=== PATIENT | female | born 1980 | race Two or more races ===

== ENCOUNTER 2024-09-12 17:28 | Inpatient (IN) | payer BC, MEDICAID ==
[~2024-09-12] VITALS: Ht 154.9 cm; Wt 85.4 kg
--- NOTE | 2024-09-12 18:29 | ED.PDOC ---
GI ASSESSMENT HPI Comments 44 y/o F, with PMHx of hypothyroidism SHx of myomectomy and gastric bypass, presents to the ED for CC of abdominal pain. Patient states, she has been experiencing epigastric abdominal pain x3days. Patient relays, associated symptoms of vomiting and back pain which have since, resolved. Patient complains of current 10/10 pain. Patient denies nausea, diarrhea, fever, chills, or sweats. No other symptoms or modifying factors present at this time. Chief Complaint: Abdominal Pain Time Seen by MD: 18:23 Primary Care Provider: none Reviewed Notes: Nurses Notes, Medications, Allergies Allergies: Coded Allergies: NO KNOWN ALLERGIES (Unverified , 04/08/23) Home Meds Active Scripts Sumatriptan Succinate (Imitrex) 50 Mg Tab, 1 TAB PO BID, #20 TAB Prov:KHAI SY 04/08/23 Information Source: Patient Mode of Arrival: Ambulatory Timing: Days Duration: Since onset Prehospital treatment: None Quality: None Vomitus: Watery Stool: Normal Severity: Moderate Recent: None Recent Hx of: Abdominal Operations, Abdominal Surgery Pain Location: Epigastric Modifying Factors: Nothing Associated sign and symptoms: Vomiting, Abdominal Pain Past Medical History PAST MEDICAL HISTORY: Thyroid Surgical History (Other): myomectomy, gastric bypass SENIOR HUMAN RESOURCES REPRESENTATIVE History: No Pertinent SENIOR HUMAN RESOURCES REPRESENTATIVE History Family History Family History: Reviewed,noncontributory to illness Social History Smoker: Non-Smoker Alcohol: Denies ETOH Use Drugs: Denies Drug Use Lives In: Home Constitutional: denies: chills, diaphoresis, fatigue, fever, malaise, sweats, weakness, others EENTM: denies: blurred vision, double vision, ear bleeding, ear discharge, ear drainage, ear pain, ear ringing, eye pain, eye redness, hearing loss, mouth pain, mouth swelling, nasal discharge, nose bleeding, nose congestion, nose pain, photophobia, tearing, throat pain, throat swelling, voice changes, others Respiratory: denies: cough, hemoptysis, orthopnea, SOB at rest, shortness of breath, SOB with excertion, stridor, wheezing, others Cardiovascular: denies: chest pain, dizzy spells, diaphoresis, Dyspnea on exertion, edema, irregular heart beat, left arm pain, lightheadedness, palpitations, PND, syncope, others Gastrointestinal: reports: abdominal pain, vomiting; denies: abdomen distended, blood streaked bowels, constipated, diarrhea, dysphagia, difficulty swallowing, hematemesis, melena, nausea, poor appetite, poor fluid intake, rectal bleeding, rectal pain, others Genitourinary: denies: abnormal vagina bleeding, burning, dyspareunia, dysuria, flank pain, frequency, hematuria, incontinence, pain, , vagina discharge, urgency, others Neurological: denies: dizziness, fainting, headache, left sided numbness, left sided weakness, numbness, paresthesia, pre-existing deficit, right sided numbness, right sided weakness, seizure, speech problems, tingling, tremors, weakness, others Musculoskeletal: reports: back pain; denies: gout, joint pain, joint swelling, muscle pain, muscle stiffness, neck pain, others Integumetry: denies: bruises, change in color, change in hair/nails, dryness, laceration, lesions, lumps, rash, wounds, others Allergic/Immunocompromised: denies: Difficulty Healing, Frequent Infections, Hives, Itching, others Hematologic/Lymphatic: denies: anemia, blood clots, easy bleeding, easy bruising, swollen glands, others Endocrine: denies: excessive hunger, excessive sweating, excessive thirst, excessive urination, flushing, intolerance to cold, intolerance to heat, unex plained weight gain, unexplained weight loss, others Psychiatric: denies: anxiety, bipolar disorder, depression, hopeless, panic disorder, schizophrenia, sleepless, suicidal, others All Other Systems: Reviewed and Negative Physical Exam General Appearance: Moderate Distress HEENT: Normal ENT Inspection, Pharynx Normal, TMs Normal Neck: Full Range of Motion, Non-Tender, Normal, Normal Inspection Respiratory: Chest Non-Tender, Lungs Clear, No Accessory Muscle Use, No Respiratory Distress, Normal Breath Sounds Cardiovascular: No Edema, No JVD, No Murmur, No Gallop, Normal Peripheral Pulses, Regular Rate/Rhythm Breast Exam: Deferred Gastrointestinal: Epigastric, No Organomegaly, No Pulsatile Mass, Normal Bowel Sounds, Soft, Tenderness Genitalia: Deferred Pelvic: Deferred Rectal: Deferred Extremities: No calf tenderness, Normal capillary refill, Normal inspection, Normal range of motion, Non-tender, No pedal edema Musculoskeletal : Apperance: Normal Neurologic: Alert, sugar drier II-XII nml as Tested, No Motor Deficits, Normal Affect, Normal Mood, No Sensory Deficits Cerebellar Function: Normal Reflexes: Normal Skin: Dry, Normal Color, Warm Lymphatic: No Adenopathy Was a procedure done? Was a procedure done?: No GI differential Dx Differential Diagnosis: Cholangitis, Cholecystitis X-Ray, Labs, Meds, VS Vital Signs Date Time Temp Pulse Resp B/P (MAP) Pulse Ox O2 Delivery O2 Flow Rate FiO2 09/12/24 17:52 98.7 90 17 135/86 (102) 100 98.7 Lab Test 09/12/24 19:31 09/12/24 18:35 Range/Units Urine Color Pending Urine Clarity Pending Urine pH Pending Urine Specific [place] Pending Urine Protein Pending Urine Ketones Pending Urine Blood Pending Urine Nitrite Pending Urine Bilirubin Pending Urine Urobilinogen Pending Urine Leukocyte Esterase Pending Urine RBC Pending Urine Microscopic WBC Pending Urine Squamous Epithelial Cells Pending Urine Bacteria Pending Urine Glucose Pending White Blood Count 8.8 4.4-10.8 10^3/uL Red Blood Count 4.33 4.0-5.20 10^6/uL Hemoglobin 10.7 L 12.2-16.2 g/dL Hematocrit 32.4 L 36.0-46.0 % Mean Corpuscular Volume 74.7 L 80.0-100.0 fL Mean Corpuscular Hemoglobin 24.8 L 28.0-32.0 pg Mean Corpuscular Hemoglobin Concent 33.2 32.0-36.0 g/dL Red Cell Distribution Width 16.3 H 11.8-14.3 % Platelet Count 343 140-450 10^3/uL Mean Platelet Volume 7.9 6.9-10.8 fL Neutrophils (%) (Auto) 75.7 37.0-80.0 % Lymphocytes (%) (Auto) 15.8 10.0-50.0 % Monocytes (%) (Auto) 6.1 0.0-12.0 % Eosinophils (%) (Auto) 1.1 0.0-7.0 % Basophils (%) (Auto) 1.3 0.0-2.0 % Neutrophils # (Auto) 6.7 1.6-8.6 10 ^3/uL Lymphocytes # (Auto) 1.4 0.4-5.4 10 ^3/uL Monocytes # (Auto) 0.5 0-1.3 10 ^3/uL Eosinophils # (Auto) 0.1 0-0.8 10 ^3/uL Basophils # (Auto) 0.1 0-0.2 10 ^3/uL Nucleated Red Blood Cells 0.0 % Sodium Level 140 136-145 mmol/L Potassium Level 3.7 3.5-5.1 mmol/L Chloride Level 105 98-107 mmol/L Carbon Dioxide Level 27 20-31 mmol/L Anion Gap 8 5-15 Blood Urea Nitrogen 9 9-23 mg/dL Creatinine 0.58 0.550-1.02 mg/dL Glomerular Filtration Rate Calc 114 >90 mL/min BUN/Creatinine Ratio 15.5 10.0-20.0 Serum Glucose 106 74-106 mg/dL Calcium Level 9.1 8.7-10.4 mg/dL Total Bilirubin 0.9 0.2-1.0 mg/dL Aspartate Amino Transferase (AST) 381 H 13-40 U/L Alanine Aminotransferase (ALT) 432 H 7-40 U/L Alkaline Phosphatase 434 H 46-116 U/L Total Protein 7.5 5.7-8.2 g/dL Albumin 4.5 3.2-4.8 g/dL Lipase 36 12-53 U/L Ultrasound of the gallbladder shows: IMPRESSION: 1. Cholelithiasis and sludge in the gallbladder. There is no thickened gallbladder wall. Negative sonographic Andrade's sign. 2. Right kidney measures 9 cm. There is no hydronephrosis. The CBC shows anemia with a hemoglobin of 10.7 and hematocrit is 32.4 The chemistry panel is within normal limits and the liver enzymes are elevated The patient is being admitted at this time We discussed the findings with the patient and they are in agreement with the management. Images Reviewed?: Images reviewed and evaluated by me Time of 1ST Reevaluation: 18:53 Reevaluation 1ST: Unchanged Patient Education/Counseling: Diagnosis, Treatment Family Education/Counseling: No Family Present Departure 1 Departure Time of Disposition: 19:50 Impression: Primary Impression: Intractable abdominal pain Additional Impression: Cholelithiasis Qualified Codes: K80.20 - Calculus of gallbladder without cholecystitis without obstruction Disposition: ADMITTED INPATIENT Admit to: Med Surg Condition: Fair Critical Care Note Critical Care Time?: No Stability Stability form required: Yes Unstable for transfer: ED Physician Assesment (Clinical assesment) Heart Score Heart Score: Heart Score Response (Comments) Value History N/A 0 EKG N/A 0 Age N/A 0 Risk Factors N/A 0 Troponin N/A 0 Total 0 I personally scribed for BIANCA ESPITIA MD ([email or web address]) on 09/12/24 at 18:28. Electronically submitted by Nancy Dubois ([email or web address]). BIANCA ESPITIA MD September 12, 2024 18:28
[2024-09-12] MEDS: MORPHINE SULFATE 4 MG/ML SYR/VIAL IV ONE (18:30)
[2024-09-12 18:46] LABS: Basophils # (auto) 0.1 10 ^3/uL (0-0.2); Basophils % (auto) 1.3 % (0.0-2.0); Eosinophils # (auto) 0.1 10 ^3/uL (0-0.8); Eosinophils % (auto) 1.1 % (0.0-7.0); Hematocrit 32.4 % (36.0-46.0); Hemoglobin 10.7 g/dL (12.2-16.2); Lymphocytes # (auto) 1.4 10 ^3/uL (0.4-5.4); Lymphocytes % (auto) 15.8 % (10.0-50.0); Mean Corpuscular Hemoglobin 24.8 pg (28.0-32.0); Mean Corpuscular Hgb Conc. 33.2 g/dL (32.0-36.0); Mean Corpuscular Volume 74.7 fL (80.0-100.0); Monocytes # (auto) 0.5 10 ^3/uL (0-1.3); Monocytes % (auto) 6.1 % (0.0-12.0); Neutrophils # (auto) 6.7 10 ^3/uL (1.6-8.6); Neutrophils % (auto) 75.7 % (37.0-80.0); Platelet Count (auto) 343 10^3/uL (140-450); Red Blood Cells 4.33 10^6/uL (4.0-5.20); Red Cell Distribution Width 16.3 % (11.8-14.3); White Blood Cell 8.8 10^3/uL (4.4-10.8)
[2024-09-12 19:05] LABS: Anion Gap 8 (5-15); BUN/Creatinine Ratio 15.5 (10.0-20.0); Blood Urea Nitrogen 9 mg/dL (9-23); Calcium 9.1 mg/dL (8.7-10.4); Carbon Dioxide 27 mmol/L (20-31); Chloride 105 mmol/L (98-107); Glucose 106 mg/dL (74-106); Lipase 36 U/L (12-53); Potassium 3.7 mmol/L (3.5-5.1); Sodium 140 mmol/L (136-145); Total Protein 7.5 g/dL (5.7-8.2)
[2024-09-12 19:06] LABS: Albumin 4.5 g/dL (3.2-4.8); Bilirubin, Total 0.9 mg/dL (0.2-1.0)
[2024-09-12 19:07] LABS: Alanine Aminotransferase 432 U/L (7-40); Alkaline Phosphatase 434 U/L (46-116); Aspartate Aminotransferase 381 U/L (13-40)
[2024-09-12 19:33] LABS: Urine Bacteria None Seen /hpf (None Seen)
--- NOTE | 2024-09-12 19:36 | DVH ---
INDICATION: pain TECHNIQUE: Ultrasound of the gallbladder. Multiple real-time sonographic images of the abdomen were obtained. COMPARISON: None FINDINGS: The liver is homogenous in echogenicity. The liver measures 15.2 cm. No intrahepatic bilia ry ductal dilatation is noted. The gallbladder wall measures 0.13 cm and is unremarkable. Cholelithiasis which appear mobile. Ther e is also sludge in the gallbladder. The common duct measures 0.43 cm and is unremarkable. No peric holecystic fluid is noted. Negative sonographic andrade's sign. The right kidney measures 9 cm. No hydronephrosis. The pancreas is not well visualized due to obscuration from bowel gas. The visualized portions of the IVC and aorta are grossly unremarkable. IMPRESSION: 1. Cholelithiasis and sludge in the gallbladder. There is no thickened gallbladder wall. Negative son ographic Andrade's sign. 2. Right kidney measures 9 cm. There is no hydronephrosis.
[2024-09-12 20:01] LABS: Urine Blood 3+ /uL (Negative); Urine Clarity Turbid (Clear); Urine Color Light-Orange (Yellow); Urine Mucus FEW (None Seen); Urine Protein, UAD TRACE (Negative); Urine Specific Gravity 1.024 (1.001-1.035); Urine Squamous Epithelial Cell FEW /hpf (<5); Urine Urobilinogen 4 mg/dL (Negative); Urine WBC 25 /HPF (0-5); Urine pH 6.5 (5.0-9.0)
[2024-09-12] MEDS ORDERED: ACETAMINOPHEN 325 MG TAB PO PRN (21:15)
[2024-09-12] MEDS ORDERED: IBUPROFEN 400 MG TAB PO PRN (21:15)
[2024-09-13] VITALS (9 sets, daily range): BP systolic 97–123; BP diastolic 58–87; PULSE 55–90; RESP 14–20; TEMP 97.6–98.3; O2SAT 97–100
[2024-09-13] MEDS: SODIUM CHLORIDE 0.9% 1,000 ML IVB ONE (00:11)
[2024-09-13] MEDS: PANTOPRAZOLE 40 MG/10 ML VIAL INJ IV ONE (00:22)
[2024-09-13] MEDS: ONDANSETRON HCL 4 MG/2 ML VIAL IV ONE (00:22)
[2024-09-13] MEDS: metroNIDAZOLE 500MG/100ML 100 ML IV SCH (00:22)
--- NOTE | 2024-09-13 00:41 | DVH ---
Exam: CT CT AB PEL WITH IV CON ONLY History: acute intractable abdominal pain Comparison Study: None Technique: Multidetector spiral CT of the abdomen was performed from lung bases to pubic symphysis. I maging was performed without IV contrast. Axial, coronal and sagittal multiplanar reformats were obta ined from the axial data set by the technologist. Radiation Dose : 1. Abdomen/Pelvis: CTDIvol 16.22 mGy, DLP 887.09 mGy*cm. Findings: Evaluation of solid organs is limited due to lack of intravenous contrast use. Lung Bases: No acute or significant lung base finding. Normal heart size. No pleural or pericardial effusion. Liver: The liver is normal in size. No focal lesions. Gallbladder and Biliary Tree: Unremarkable Spleen: Unremarkable Pancreas: The pancreas is grossly normal in appearance. Adrenal Glands: Unremarkable Kidneys: Kidneys are grossly normal without calculi or hydronephrosis. Bladder: Grossly unremarkable for degree of distention. Bowel: Postsurgical changes noted within the stomach. The stomach is otherwise grossly normal in appe arance. Small bowel and colon are normal in caliber and distribution. The appendix is normal. Ascites: Absent Lymphadenopathy: No mesenteric, retroperitoneal or periportal lymphadenopathy. Abdominal Wall and Mesentery: Unremarkable. Vasculature: The visualized abdominal aorta is normal in size and caliber. Evaluation of abdominal a nd pelvic vessels is limited due to lack of intravenous contrast. Pelvic Organs: 2.2 cm cystic near water attenuation structure within left adnexal region. The cervix is lobulated and moderately enlarged, measuring 3.5 x 3.4 cm transverse by 5.1 cm craniocaudal, with multiple lobulated near water attenuation cystic densities measuring up to 1.8 cm in diameter central ly. Musculoskeletal: No aggressive focal bony lesions, acute fractures or dislocation. IMPRESSION: 1. Enlarged lobulated multi-cystic cervix. Considerations include cervicitis, multiple nabothian cyst s or malignancy. 2. Cystic appearing left adnexal structure may represent ovarian cysts versus possible dilated fallop barbara tube. Radiation optimization: All CT scans at this facility use at least one of these dose optimization nitza hniques: automated exposure control mA and/or kV adjustment per patient size (includes targeted exam s where dose is matched to clinical indication) or iterative reconstruction.
--- NOTE | 2024-09-13 03:37 | DVHHP2 ---
History of Present Illness Reason for Visit: acute intractable abdominal pain History of Present Illness 44-year-old female with past medical history of hypothyroidism, status post myomectomy and gastric bypass, presents with 3-day history of severe epigastric abdominal pain rated 10/10. Pain is constant, without known alleviating or exacerbating factors. Associated symptoms include vomiting and back pain, which have since resolved. She denies diarrhea, nausea, chills, fever, or sweats. She is currently menstruating. Notable for recent Moy catheter placement. Denies prior similar episodes. Home Meds: Sumatriptan (Imitrex) 50 mg PO BID Protonix Synthroid Allergies: NKDA Social History: Non-smoker Denies alcohol or illicit drug use Lives independently Review of Systems Review of Systems ROS: Negative except as noted in HPI. Allergies: Coded Allergies: NO KNOWN ALLERGIES (Unverified , 04/08/23) Medications Current Medications Medications Dose Ordered Sig/Pennie Route Start Time Stop Time Status Last Admin Dose Admin Ceftriaxone Sodium 50 ml @ 100 mls/hr DAILY@09 IV 09/13/24 09:00 Metronidazole 100 ml @ 100 mls/hr Q8HR IV 09/12/24 22:00 09/13/24 00:22 100 MLS/HR Ibuprofen 400 mg Q6HP PRN PO 09/12/24 21:15 Ketorolac Tromethamine 15 mg Q6HPRN PRN IV 09/12/24 21:15 09/17/24 21:14 Sodium Chloride 1,000 ml @ 100 mls/hr Q10H IV 09/12/24 21:15 Pantoprazole Sodium 40 mg DAILY IV 09/13/24 10:00 Acetaminophen 325 mg Q6HP PO 09/13/24 06:00 UNV Exam Vital Signs Vital Signs Date Time Temp Pulse Resp B/P (MAP) Pulse Ox O2 Delivery O2 Flow Rate FiO2 09/13/24 00:35 98.3 86 20 117/64 (81) 100 98.3 Exam General: Alert, oriented, uncomfortable due to pain HEENT: Normocephalic, atraumatic CV: RRR, no murmurs Resp: Clear to auscultation bilaterally GI: Epigastric tenderness to palpation, no guarding or rebound Back: Left CVA tenderness Ext: No edema Neuro: Grossly intact Skin: No rash Labs/Xrays Labs Test 09/12/24 19:31 09/12/24 18:35 Range/Units Urine Color Light-orange Yellow Urine Clarity Turbid H Clear Urine pH 6.5 5.0-9.0 Urine Specific [place] 1.024 1.001-1.035 Urine Protein Trace H Negative Urine Ketones Trace Negative Urine Blood 3+ H Negative /uL Urine Nitrite Negative Negative Urine Bilirubin Negative Negative Urine Urobilinogen 4 H Negative mg/dL Urine Leukocyte Esterase 1+ Negative /uL Urine RBC 3594 0 - 4 /hpf Urine Microscopic WBC 25 H 0-5 /HPF Urine Squamous Epithelial Cells Few <5 /hpf Urine Bacteria None seen None Seen /hpf Urine Mucus Few None Seen Urine Glucose Normal Normal mg/dL White Blood Count 8.8 4.4-10.8 10^3/uL Red Blood Count 4.33 4.0-5.20 10^6/uL Hemoglobin 10.7 L 12.2-16.2 g/dL Hematocrit 32.4 L 36.0-46.0 % Mean Corpuscular Volume 74.7 L 80.0-100.0 fL Mean Corpuscular Hemoglobin 24.8 L 28.0-32.0 pg Mean Corpuscular Hemoglobin Concent 33.2 32.0-36.0 g/dL Red Cell Distribution Width 16.3 H 11.8-14.3 % Platelet Count 343 140-450 10^3/uL Mean Platelet Volume 7.9 6.9-10.8 fL Neutrophils (%) (Auto) 75.7 37.0-80.0 % Lymphocytes (%) (Auto) 15.8 10.0-50.0 % Monocytes (%) (Auto) 6.1 0.0-12.0 % Eosinophils (%) (Auto) 1.1 0.0-7.0 % Basophils (%) (Auto) 1.3 0.0-2.0 % Neutrophils # (Auto) 6.7 1.6-8.6 10 ^3/uL Lymphocytes # (Auto) 1.4 0.4-5.4 10 ^3/uL Monocytes # (Auto) 0.5 0-1.3 10 ^3/uL Eosinophils # (Auto) 0.1 0-0.8 10 ^3/uL Basophils # (Auto) 0.1 0-0.2 10 ^3/uL Nucleated Red Blood Cells 0.0 % Sodium Level 140 136-145 mmol/L Potassium Level 3.7 3.5-5.1 mmol/L Chloride Level 105 98-107 mmol/L Carbon Dioxide Level 27 20-31 mmol/L Anion Gap 8 5-15 Blood Urea Nitrogen 9 9-23 mg/dL Creatinine 0.58 0.550-1.02 mg/dL Glomerular Filtration Rate Calc 114 >90 mL/min BUN/Creatinine Ratio 15.5 10.0-20.0 Serum Glucose 106 74-106 mg/dL Calcium Level 9.1 8.7-10.4 mg/dL Total Bilirubin 0.9 0.2-1.0 mg/dL Aspartate Amino Transferase (AST) 381 H 13-40 U/L Alanine Aminotransferase (ALT) 432 H 7-40 U/L Alkaline Phosphatase 434 H 46-116 U/L Total Protein 7.5 5.7-8.2 g/dL Albumin 4.5 3.2-4.8 g/dL Lipase 36 12-53 U/L Assessment/Plan Assessment/Plan #Acute intractable abdominal pain #Symptomatic Cholelithiasis #Transaminitis #Possible PID #UTI? #Hypothyroidism #GERD? Current in her period Admit NPO Med surg Surgery consult due to very symptomatic cholelithiasis IB AB: ceftriaxone + metronidazole Doxycycline and ceftriaxone due to possible PID Pain management Protonix IV NS 100 CC/H Case discussed with Dr Short Full code Plan discussed with: Patient, Other (rn) My Orders Orders - JOLENE CHANG Procedure Category Date Status Time Admit ADMIT 09/12/24 Transmitted 21:01 Code Status CODE 09/12/24 Transmitted 21:01 Vital Signs INDY 09/12/24 In Process 21:01 Review Orders With INDY 09/12/24 In Process Adm. 21:01 Notify Of Changes INDY 09/12/24 In Process From Base 21:01 Advance Directive INDY 09/12/24 In Process 21:01 Patient Condition ORDERS 09/12/24 Transmitted 21:01 Allergies INDY 09/12/24 In Process 21:01 Npo (Nothing By DIET 09/13/24 Transmitted Mouth) Diet Breakfast Urine ED NURSING 09/12/24 Transmitted Urine Bacterial JENNI 09/12/24 In Process Culture 21:01 Acute Hepatitis Panel LAB 09/12/24 In Process 21:01 Ceftriaxone 1gm/50ml PHA 09/13/24 In Process D5w (Rocephin) 09:00 Metronidazole PHA 09/12/24 In Process 500mg/100ml (Flagyl 22:00 Ibuprofen Tablet PHA 09/12/24 In Process (Motrin Tablet) 21:15 Ketorolac Injection PHA 09/12/24 In Process (Toradol Injection) 21:15 Sodium Chloride 0.9% PHA 09/12/24 In Process 21:15 Pantoprazole PHA 09/13/24 In Process (Protonix) 10:00 Ct Ab Pel With Iv Con CT 09/12/24 Resulted Only 21:01 Acetaminophen Tablet PHA 09/13/24 Pending (Tylenol Tablet) 06:00 * Surgical Consult CONS 09/13/24 Transmitted Complete Blood Count LAB 09/13/24 Transmitted 03:32 Comprehensive LAB 09/13/24 Transmitted Metabolic Panel 03:32 Doxycycline Tablet PHA 09/13/24 Transmitted (Vibramycin Tablet) 10:00 Chlamydia/Gc LAB 09/13/24 Transmitted Amplification 03:32 Date of Service: September 12, 2024 Billing Provider: TONAJ SHORT MD Common Visit Codes: 06290-VYSIXOM INP/OBS CARE (HIGH) Secondary Visit Codes: 37259-CSPQQRMY CARE PLAN 30 MINUTES JOLENE CHANG RESIDENT September 13, 2024 03:37
[2024-09-13] MEDS: SODIUM CHLORIDE 0.9% 1,000 ML IV SCH (05:13)
[2024-09-13] MEDS: LEVOTHYROXINE SODIUM 50 MCG TAB PO SCH (05:22)
[2024-09-13 06:33] LABS: Basophils # (auto) 0.1 10 ^3/uL (0-0.2); Eosinophils # (auto) 0.2 10 ^3/uL (0-0.8)
[2024-09-13 06:38] LABS: Basophils % (auto) 1.4 % (0.0-2.0); Eosinophils % (auto) 2.4 % (0.0-7.0); Hematocrit 30.3 % (36.0-46.0); Hemoglobin 9.7 g/dL (12.2-16.2); Mean Corpuscular Hgb Conc. 32.1 g/dL (32.0-36.0); Mean Corpuscular Volume 74.8 fL (80.0-100.0); Monocytes # (auto) 0.6 10 ^3/uL (0-1.3); Monocytes % (auto) 7.5 % (0.0-12.0); Neutrophils # (auto) 5.6 10 ^3/uL (1.6-8.6); Neutrophils % (auto) 65.7 % (37.0-80.0); Platelet Count (auto) 309 10^3/uL (140-450); Red Blood Cells 4.06 10^6/uL (4.0-5.20); Red Cell Distribution Width 16.7 % (11.8-14.3); White Blood Cell 8.6 10^3/uL (4.4-10.8)
[2024-09-13 06:53] LABS: Albumin 3.8 g/dL (3.2-4.8); Anion Gap 7 (5-15); BUN/Creatinine Ratio 12.5 (10.0-20.0); Bilirubin, Total 0.4 mg/dL (0.2-1.0); Carbon Dioxide 27 mmol/L (20-31); Chloride 107 mmol/L (98-107); Glucose 77 mg/dL (74-106); Potassium 3.6 mmol/L (3.5-5.1); Sodium 141 mmol/L (136-145); Total Protein 6.3 g/dL (5.7-8.2)
[2024-09-13 06:54] LABS: Alanine Aminotransferase 338 U/L (7-40); Alkaline Phosphatase 369 U/L (46-116); Aspartate Aminotransferase 168 U/L (13-40); Blood Urea Nitrogen 6 mg/dL (9-23); Calcium 8.6 mg/dL (8.7-10.4)
[2024-09-13] MEDS: DOXYCYCLINE 100 MG TAB/CAP PO SCH (09:09)
[2024-09-13] MEDS: cefTRIAXone 1GM/50ML D5W 50 ML IV SCH (09:09)
[2024-09-13] MEDS: PANTOPRAZOLE 40 MG/10 ML VIAL INJ IV SCH (09:11)
[2024-09-13 10:09] LABS: Hepatitis B Surface Antigen Negative (Negative)
[2024-09-13 10:20] LABS: Hepatitis A Ab IgM Negative; Hepatitis B Core IgM Negative (Negative); Hepatitis C Antibody Negative (Negative)
--- NOTE | 2024-09-13 10:49 | DVHINCON2 ---
Date of service: September 13, 2024 Referring Physician hospitalist Reason for Consultation pelvic cyst History of Present Illness pt is admitted for epigastric pain,had recent myomectomy by dr vega .per dr vega pt is suffering from gall bladder problems and he has cleared her gynecologically. pt has an ultrasound which reveals multiple nabolthin cysts of cervix and left hydrosalpinx.her lmp was 09/11/24 ,she denies any pelvic pain or aub.last pap was recent Past Medical History hypothyroid and anemia Past Surgical History myomectomy,gastric sleeve Family History na Social History 2 Patient Family History: Diabetes mellitus G8 SISTER Hypertension G8 MOTHER Allergies: Coded Allergies: NO KNOWN ALLERGIES (Unverified , 04/08/23) Home Meds Active Scripts Sumatriptan Succinate (Imitrex) 50 Mg Tab, 1 TAB PO BID, #20 TAB Prov:KHAI SY 04/08/23 Reported Medications Levothyroxine Sodium (Synthroid) 125 Mcg Tab, 1 TAB PO DAILY, #30 TAB 5 Refills 09/13/24 Current Medications Current Medications Medications (Trade) Dose Ordered Sig/Pennie Route PRN Reason Start Time Stop Time Status Last Admin Ceftriaxone Sodium 50 ml @ 100 mls/hr DAILY@09 IV 09/13/24 09:00 09/13/24 09:09 Metronidazole 100 ml @ 100 mls/hr Q8HR IV 09/12/24 22:00 09/13/24 05:17 Acetaminophen (Tylenol Tablet) 325 mg Q6HP PRN PO MILD PAIN (1-3 PAIN SCALE) 09/12/24 21:15 09/13/24 00:41 DC Ibuprofen (Motrin Tablet) 400 mg Q6HP PRN PO MODERATE PAIN (4-6 PAIN SCALE) 09/12/24 21:15 Ketorolac Tromethamine (Toradol Injection) 15 mg Q6HPRN PRN IV SEVERE PAIN (7-10 PAIN SCALE) 09/12/24 21:15 09/17/24 21:14 Sodium Chloride 1,000 ml @ 100 mls/hr Q10H IV 09/12/24 21:15 09/13/24 05:13 Pantoprazole Sodium (Protonix) 40 mg DAILY IV 09/13/24 10:00 09/13/24 09:11 Acetaminophen (Tylenol Tablet) 325 mg Q6HP PO 09/13/24 06:00 Doxycycline Monohydrate (Vibramycin Tablet) 100 mg Q12HR PO 09/13/24 10:00 09/13/24 09:09 Levothyroxine Sodium (Synthroid Tablet) 125 mcg QAM@0600 PO 09/13/24 06:00 Review of Systems Constitutional: no fever, chill, weight loss HEENT: no eye pain, no hearing loss, no oral lesion, no scleral icterus Heart: no chest pain, no chest pressure Lung: no cough, no dyspnea with exertion Abdomen: see HPI : no pain with urination, normal appearing urine Musculoskeletal: no joint pain, no muscle pain Neurological: no seizure, no loss of sensation, no weakness in extremities Pysch: no depression, no anxiety Derm: no rash, no jaundice Vital Signs Vital Signs Date Time Temp Pulse Resp B/P (MAP) Pulse Ox O2 Delivery O2 Flow Rate FiO2 09/13/24 08:23 55 20 98 Room Air* 0 21 09/13/24 05:00 97.8 97/58 (71) 97.8 Physical Exam SKIN: [nl] HEENT: [nl] NECK: [nl] CARDIAC: [rrr] PULMONARY: [cta] ABDOMEN: [soft,nt] MUSCULOSKELETAL: [nl] pelvic- vag nl,cx nl cystic,uterus nl size,adenxa nt Labs/Diagnostic Data Labs Test 09/13/24 05:40 09/12/24 19:31 09/12/24 18:35 Range/Units White Blood Count 8.6 4.4-10.8 10^3/uL Red Blood Count 4.06 4.0-5.20 10^6/uL Hemoglobin 9.7 L 12.2-16.2 g/dL Hematocrit 30.3 L 36.0-46.0 % Mean Corpuscular Volume 74.8 L 80.0-100.0 fL Mean Corpuscular Hemoglobin 24.0 L 28.0-32.0 pg Mean Corpuscular Hemoglobin Concent 32.1 32.0-36.0 g/dL Red Cell Distribution Width 16.7 H 11.8-14.3 % Platelet Count 309 140-450 10^3/uL Mean Platelet Volume 8.2 6.9-10.8 fL Neutrophils (%) (Auto) 65.7 37.0-80.0 % Lymphocytes (%) (Auto) 23.0 10.0-50.0 % Monocytes (%) (Auto) 7.5 0.0-12.0 % Eosinophils (%) (Auto) 2.4 0.0-7.0 % Basophils (%) (Auto) 1.4 0.0-2.0 % Neutrophils # (Auto) 5.6 1.6-8.6 10 ^3/uL Lymphocytes # (Auto) 2.0 0.4-5.4 10 ^3/uL Monocytes # (Auto) 0.6 0-1.3 10 ^3/uL Eosinophils # (Auto) 0.2 0-0.8 10 ^3/uL Basophils # (Auto) 0.1 0-0.2 10 ^3/uL Nucleated Red Blood Cells 0.0 % Sodium Level 141 136-145 mmol/L Potassium Level 3.6 3.5-5.1 mmol/L Chloride Level 107 98-107 mmol/L Carbon Dioxide Level 27 20-31 mmol/L Anion Gap 7 5-15 Blood Urea Nitrogen 6 L 9-23 mg/dL Creatinine 0.48 L 0.550-1.02 mg/dL Glomerular Filtration Rate Calc 120 >90 mL/min BUN/Creatinine Ratio 12.5 10.0-20.0 Serum Glucose 77 74-106 mg/dL Calcium Level 8.6 L 8.7-10.4 mg/dL Total Bilirubin 0.4 0.2-1.0 mg/dL Aspartate Amino Transferase (AST) 168 H 13-40 U/L Alanine Aminotransferase (ALT) 338 H 7-40 U/L Alkaline Phosphatase 369 H 46-116 U/L Total Protein 6.3 5.7-8.2 g/dL Albumin 3.8 3.2-4.8 g/dL Urine Color Light-orange Yellow Urine Clarity Turbid H Clear Urine pH 6.5 5.0-9.0 Urine Specific [place] 1.024 1.001-1.035 Urine Protein Trace H Negative Urine Ketones Trace Negative Urine Blood 3+ H Negative /uL Urine Nitrite Negative Negative Urine Bilirubin Negative Negative Urine Urobilinogen 4 H Negative mg/dL Urine Leukocyte Esterase 1+ Negative /uL Urine RBC 3594 0 - 4 /hpf Urine Microscopic WBC 25 H 0-5 /HPF Urine Squamous Epithelial Cells Few <5 /hpf Urine Bacteria None seen None Seen /hpf Urine Mucus Few None Seen Urine Glucose Normal Normal mg/dL Lipase 36 12-53 U/L Hepatitis A IgM Antibody Negative Hepatitis B Surface Antigen Negative Negative Hepatitis B Core IgM Antibody Negative Negative Hepatitis C Antibody Negative Negative Microbiology Date/Time Source Procedure Growth Status 09/12/24 19:31 Voided Urine Urine Culture - Preliminary Resulted Primary Diagnosis abd pain suspect cholelthiasis 2' Diagnosis/Comorbidities s/p recent myomectomy appears stable multople nabolthin cyst of cervix -benign findings left hydrosalpinx Plan fu with obgyn after discharge no further intervention needed from geography department chair aspect thank you will sign off Plan discussed with: Patient Visit Coding OBGYN Date of Service: September 13, 2024 Billing Provider: VENKAT CEBALLOS DO SALES AND LEASING CONSULTANT Common Visit Codes: 59510-KNK/OBS SAME DATE (HIGH) SALES AND LEASING CONSULTANT Consultation Codes: [id number] CONSULT <55MIN VENKAT CEBALLOS DO September 13, 2024 10:49
--- NOTE | 2024-09-13 14:09 | DVH ---
MRI MRCP MRI HISTORY: RULE OUT CHOLEDOCHOLITHIASIS COMPARISON: None PROCEDURE: Multiplanar multisequence MRI images were obtained of the abdomen without intravenous cont rast Additional MIPS were obtained of the biliary system. FINDINGS: Bile ducts: -Intrahepatic ducts: Non-dilated. -Extrahepatic ducts: Non-dilated. -Common bile duct: Non-dilated. -Filling defects: No filling defects -Stricture: None. Gallbladder: Multiple gallstones. Pancreas: Pancreatic duct: No ductal dilatation. Lesions: None. Liver: Signal intensity: Homogenous. Contour: Smooth. Size: Normal. Lesions: No focal liver lesion. ADDITIONAL FINDINGS: Lung base: Normal. Pancreas: Normal. Spleen:Normal. Bowel: Normal. Normal appendix. Adrenal glands:Normal. Kidneys and ureters:Simple appearing kidney cysts. Lymph nodes:Normal. Peritoneum:Normal. Vessels: Normal. Abdominal wall: Normal. Bone: No aggressive bone lesions IMPRESSION: Cholelithiasis without evidence of choledocholithiasis.
[2024-09-13] MEDS: ACETAMINOPHEN 325 MG TAB PO SCH (16:59)
--- NOTE | 2024-09-13 19:31 | DVHPNRES ---
Progress Note Date Seen: September 13, 2024 Resident Creating Document: YUDY DE LA FUENTE RESIDENT Has the PT tested + for MRSA If YES, has PT been informed?: No Medical Necessity Reason Pt with a Central, PICC or Fol: No Medical Necessity Reason Present of Presenting illness 44-year-old female with past medical history of hypothyroidism, status post myomectomy and gastric bypass, presents with 3-day history of severe epigastric abdominal pain rated 10/10. Pain is constant, without known alleviating or exacerbating factors. Associated symptoms include vomiting and back pain, which have since resolved. She denies diarrhea, nausea, chills, fever, or sweats. She is currently menstruating. Notable for recent Moy catheter placement. Denies prior similar episodes. PMHx: hypothyroidism Pshx: myomectomy and gastric bypas Home Meds:Sumatriptan (Imitrex) 50 mg PO BID,Protonix, Synthroid Allergies: NKDA Social History: Non-smoker, Denies alcohol or illicit drug use. Lives independently PN: 09/13/2024 Patient is a 44-year-old female with a past medical history of hypothyroidism presented to the ED with epigastric pain for the past 3 days. According to the patient pain is mainly located in the epigastrium region with radiation towards the back and a little bit to the right flank. It is associated with nausea and vomiting. No diarrhea. Of note patient recently had a myomectomy which was done about 6 weeks ago no complications reported. Today she denies any fever chills sweating. In the ED her initial vitals were grossly unremarkable, lab work was also unremarkable other than elevated liver enzymes. CT abdomen revealed. Enlarged lobulated multi-cystic cervix. Considerations include cervicitis, multiple nabothian cysts or malignancy. Cystic appearing left adnexal structure may represent ovarian cysts versus possible dilated fallopian tube. Gallbladder scan revealed Cholelithiasis and sludge in the gallbladder. There is no thickened gallbladder wall. Negative sonographic Andrade's sign. Right kidney measures 9 cm. There is no hydronephrosis. Subjective Review of Systems Constitutional: Denies fever no chills no feeling of malaise HEENT: Denies headache, ear pain, ear discharges, conjunctivitis, nasal discharge throat pain Cardiovascular: Denies chest pain, palpitation, orthopnea, PND, or pedal edema Respiratory: Denies shortness of breath, cough cough, sputum production, hemoptysis, GI: Severe abdominal pain, No more nausea, vomiting, NO diarrhea, hematemesis, hematochezia, : Denies frequency, urgency, hematuria, Endocrine: Denies unintentional weight gain or weight loss, feeling of hot flashes, Wesley: Denies easy bruising, bleeding disorders, epistaxis Musculoskeletal: Denies joint pains, muscle aches Psych: No evidence of depression, henry, suicidal ideation Objective vital signs Vital Sign Date Time Temp Pulse Resp B/P (MAP) Pulse Ox O2 Delivery O2 Flow Rate FiO2 09/13/24 16:38 98.3 90 18 104/87 (93) 99 98.3 09/13/24 14:45 Room Air* 0 21 medications Current Medications Medications Dose Ordered Sig/Pennie Route Start Time Stop Time Status Last Admin Dose Admin Ceftriaxone Sodium 50 ml @ 100 mls/hr DAILY@09 IV 09/13/24 09:00 09/13/24 09:09 100 MLS/HR Metronidazole 100 ml @ 100 mls/hr Q8HR IV 09/12/24 22:00 09/13/24 14:28 100 MLS/HR Ibuprofen 400 mg Q6HP PRN PO 09/12/24 21:15 Ketorolac Tromethamine 15 mg Q6HPRN PRN IV 09/12/24 21:15 09/17/24 21:14 Sodium Chloride 1,000 ml @ 100 mls/hr Q10H IV 09/12/24 21:15 09/13/24 05:13 100 MLS/HR Pantoprazole Sodium 40 mg DAILY IV 09/13/24 10:00 09/13/24 09:11 40 MG Acetaminophen 325 mg Q6HP PO 09/13/24 06:00 09/13/24 16:59 325 MG Levothyroxine Sodium 125 mcg QAM@0600 PO 09/13/24 06:00 Examination General Appearance: Alert, Oriented X3, Cooperative, No acute distress HEENT: Atraumatic, PERRLA, EOMI, Mucous membrane moist/pink Respiratory: Clear to auscultation, Normal air movement Cardiovascular: Regular rate, Normal S1, Normal S2, No murmurs, no chest wall tenderness Abdominal: Andrade;s sign negative. tenderness, bowel sounds present, no scars noted Extremities: No clubbing, No cyanosis, No edema, Normal pulses, No tenderness/swelling Skin: No rashes, No breakdown, No significant lesion Neuro: Normal gait, Normal speech, Strength at 5/5 X4 ext, Normal tone, Sensation intact, Cranial nerves 3-12 NL, Reflexes 2+ Psych/Mental Status: Mental status NL, Mood NL laboratory and microbiology Laboratory Tests 09/13/24 05:40 Test 09/13/24 05:40 Range/Units Serum Glucose 77 74-106 mg/dL Microbiology Date/Time Source Procedure Growth Status 09/12/24 19:31 Voided Urine Urine Culture - Preliminary Resulted Problem List/Assessment/Plan Problem List/Assessment/Plan Assessment and plan Acute Epigastric pain rule out cholecystitis --> cholelithiasis noted on CT abdomen --> MRCP negative for any choledocholithiasis --> consider HIDA scan Recent history of myomectomy 6 weeks ago multople nabolthin cyst of cervix -benign findings --> obgyn Consulted Acute left hydrosalpinx --> fu with obgyn after discharge, 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 Larson Plan discussed with: Patient My Orders My Orders Orders - YUDY DE LA FUENTE Procedure Category Date Status Time Mrcp Mri MRI 09/13/24 Resulted 11:59 Date of Service: September 13, 2024 Billing Provider: YUE CONTRERAS MD Common Visit Codes: [id number] INP/OBS CARE(HIGH) YUDY DE LA FUENTE September 13, 2024 19:31 YUE CONTRERAS MD September 17, 2024 03:12
--- NOTE | 2024-09-13 22:04 | DVHINCON2 ---
Date of service: September 13, 2024 Current Medications Current Medications Medications (Trade) Dose Ordered Sig/Pennie Route PRN Reason Start Time Stop Time Status Last Admin Ceftriaxone Sodium 50 ml @ 100 mls/hr DAILY@09 IV 09/13/24 09:00 09/13/24 09:09 Pantoprazole Sodium (Protonix) 40 mg DAILY IV 09/13/24 10:00 09/13/24 09:11 Acetaminophen (Tylenol Tablet) 325 mg Q6HP PO 09/13/24 06:00 09/13/24 16:59 Doxycycline Monohydrate (Vibramycin Tablet) 100 mg Q12HR PO 09/13/24 10:00 09/13/24 12:01 DC 09/13/24 09:09 Levothyroxine Sodium (Synthroid Tablet) 125 mcg QAM@0600 PO 09/13/24 06:00 Vital Signs Vital Signs Date Time Temp Pulse Resp B/P (MAP) Pulse Ox O2 Delivery O2 Flow Rate FiO2 09/13/24 16:38 98.3 90 18 104/87 (93) 99 98.3 09/13/24 14:45 Room Air* 0 21 Labs/Diagnostic Data Labs Test 09/13/24 05:40 09/12/24 19:31 09/12/24 18:35 Range/Units White Blood Count 8.6 4.4-10.8 10^3/uL Red Blood Count 4.06 4.0-5.20 10^6/uL Hemoglobin 9.7 L 12.2-16.2 g/dL Hematocrit 30.3 L 36.0-46.0 % Mean Corpuscular Volume 74.8 L 80.0-100.0 fL Mean Corpuscular Hemoglobin 24.0 L 28.0-32.0 pg Mean Corpuscular Hemoglobin Concent 32.1 32.0-36.0 g/dL Red Cell Distribution Width 16.7 H 11.8-14.3 % Platelet Count 309 140-450 10^3/uL Mean Platelet Volume 8.2 6.9-10.8 fL Neutrophils (%) (Auto) 65.7 37.0-80.0 % Lymphocytes (%) (Auto) 23.0 10.0-50.0 % Monocytes (%) (Auto) 7.5 0.0-12.0 % Eosinophils (%) (Auto) 2.4 0.0-7.0 % Basophils (%) (Auto) 1.4 0.0-2.0 % Neutrophils # (Auto) 5.6 1.6-8.6 10 ^3/uL Lymphocytes # (Auto) 2.0 0.4-5.4 10 ^3/uL Monocytes # (Auto) 0.6 0-1.3 10 ^3/uL Eosinophils # (Auto) 0.2 0-0.8 10 ^3/uL Basophils # (Auto) 0.1 0-0.2 10 ^3/uL Nucleated Red Blood Cells 0.0 % Sodium Level 141 136-145 mmol/L Potassium Level 3.6 3.5-5.1 mmol/L Chloride Level 107 98-107 mmol/L Carbon Dioxide Level 27 20-31 mmol/L Anion Gap 7 5-15 Blood Urea Nitrogen 6 L 9-23 mg/dL Creatinine 0.48 L 0.550-1.02 mg/dL Glomerular Filtration Rate Calc 120 >90 mL/min BUN/Creatinine Ratio 12.5 10.0-20.0 Serum Glucose 77 74-106 mg/dL Calcium Level 8.6 L 8.7-10.4 mg/dL Total Bilirubin 0.4 0.2-1.0 mg/dL Aspartate Amino Transferase (AST) 168 H 13-40 U/L Alanine Aminotransferase (ALT) 338 H 7-40 U/L Alkaline Phosphatase 369 H 46-116 U/L Total Protein 6.3 5.7-8.2 g/dL Albumin 3.8 3.2-4.8 g/dL Urine Color Light-orange Yellow Urine Clarity Turbid H Clear Urine pH 6.5 5.0-9.0 Urine Specific [place] 1.024 1.001-1.035 Urine Protein Trace H Negative Urine Ketones Trace Negative Urine Blood 3+ H Negative /uL Urine Nitrite Negative Negative Urine Bilirubin Negative Negative Urine Urobilinogen 4 H Negative mg/dL Urine Leukocyte Esterase 1+ Negative /uL Urine RBC 3594 0 - 4 /hpf Urine Microscopic WBC 25 H 0-5 /HPF Urine Squamous Epithelial Cells Few <5 /hpf Urine Bacteria None seen None Seen /hpf Urine Mucus Few None Seen Urine Glucose Normal Normal mg/dL Lipase 36 12-53 U/L Hepatitis A IgM Antibody Negative Hepatitis B Surface Antigen Negative Negative Hepatitis B Core IgM Antibody Negative Negative Hepatitis C Antibody Negative Negative Microbiology Date/Time Source Procedure Growth Status 09/12/24 19:31 Voided Urine Urine Culture - Preliminary Resulted Assessment [id number] R/O AC CHOLECYSTITIS MILF LFT ELEVATION CONSIDER EMERGENT /ELECTIVE SURGERY BASED ON ONGOING EVAL REPEAT LABS AM KEEP NPO PAST MN Plan discussed with: Patient KIET DE LOS SANTOS MD September 13, 2024 22:04
[2024-09-14 01:00] VITALS: BP 95/59; PULSE 69; RESP 16; TEMP 98.1; O2SAT 97
[2024-09-14 05:00] VITALS: BP 105/61; PULSE 73; RESP 16; TEMP 98; O2SAT 96
[2024-09-14 06:36] LABS: Basophils # (auto) 0.1 10 ^3/uL (0-0.2); Hemoglobin 10.1 g/dL (12.2-16.2); Neutrophils # (auto) 5.1 10 ^3/uL (1.6-8.6); White Blood Cell 7.5 10^3/uL (4.4-10.8)
[2024-09-14 06:38] LABS: Basophils % (auto) 1.8 % (0.0-2.0); Eosinophils # (auto) 0.2 10 ^3/uL (0-0.8); Eosinophils % (auto) 2.1 % (0.0-7.0); Lymphocytes # (auto) 1.6 10 ^3/uL (0.4-5.4); Lymphocytes % (auto) 21.6 % (10.0-50.0); Mean Corpuscular Hemoglobin 23.7 pg (28.0-32.0); Mean Corpuscular Hgb Conc. 31.7 g/dL (32.0-36.0); Mean Corpuscular Volume 74.8 fL (80.0-100.0); Monocytes # (auto) 0.5 10 ^3/uL (0-1.3); Monocytes % (auto) 6.4 % (0.0-12.0); Neutrophils % (auto) 68.1 % (37.0-80.0); Nucleated Red Blood Cells % 0.1 %; Platelet Count (auto) 351 10^3/uL (140-450); Red Blood Cells 4.28 10^6/uL (4.0-5.20); Red Cell Distribution Width 16.4 % (11.8-14.3)
[2024-09-14 07:00] LABS: Anion Gap 10 (5-15); Bilirubin, Total 0.3 mg/dL (0.2-1.0); Carbon Dioxide 27 mmol/L (20-31); Chloride 104 mmol/L (98-107); Glucose 82 mg/dL (74-106); Potassium 3.6 mmol/L (3.5-5.1); Sodium 141 mmol/L (136-145); Total Protein 6.7 g/dL (5.7-8.2)
[2024-09-14 07:10] LABS: Alanine Aminotransferase 235 U/L (7-40); Alkaline Phosphatase 331 U/L (46-116); Aspartate Aminotransferase 55 U/L (13-40); BUN/Creatinine Ratio 9.8 (10.0-20.0); Blood Urea Nitrogen < 5 mg/dL (9-23)
--- NOTE | 2024-09-14 08:16 | DVHINCON2 ---
DATE OF CONSULTATION: 09/13/2024 HISTORY OF PRESENT ILLNESS: This patient is 44 years old, coming in with right upper quadrant pain with some relief, but not completely gone. Some nausea. No vomiting. No constipation or diarrhea. No hematemesis or melena. No bleeding per rectum. PAST MEDICAL HISTORY: No diabetes, hypertension. PAST SURGICAL HISTORY: Some GEAR FINISHER procedure was done 6 weeks ago. PHYSICAL EXAMINATION: VITAL SIGNS: Afebrile. Stable signs. HEENT: With no evidence of pallor, cyanosis or jaundice. NECK: Supple, nontender with no thyromegaly or lymphadenopathy. CHEST AND LUNGS: Clear. HEART: Within normal limits. ABDOMEN: Soft, tender in the right upper quadrant with minimal rebound. EXTREMITIES: Unremarkable. NEUROLOGIC: Intact. CLINICAL IMPRESSION: Rule out acute cholecystitis. Liver enzymes mildly elevated and trending down. PLAN: Would be to consider emergent or elective study based upon ongoing evaluation. Benefits, risks discussed and a consent obtained. MD THERESE Garner/ANIL/WILSON TID: [id number] RECEIPT: [id number] cc: Sheri Vigil MD
[2024-09-14 09:00] VITALS: BP 97/62; PULSE 74; RESP 18; TEMP 98.1; O2SAT 100
[2024-09-14] MEDS: LEVOTHYROXINE SODIUM 50 MCG TAB PO ONE (11:13)
[2024-09-14] MEDS: SODIUM CHLORIDE 0.9% 1,000 ML IV SCH (11:15)
[2024-09-14 13:00] VITALS: BP 100/57; PULSE 77; RESP 18; TEMP 99.1; O2SAT 100
--- NOTE | 2024-09-14 16:53 | DVHPNRES ---
Progress Note Date Seen: September 14, 2024 Resident Creating Document: YUDY DE LA FUENTE RESIDENT Has the PT tested + for MRSA If YES, has PT been informed?: No Medical Necessity Reason Pt with a Central, PICC or Fol: No Medical Necessity Reason Present of Presenting illness 44-year-old female with past medical history of hypothyroidism, status post myomectomy and gastric bypass, presents with 3-day history of severe epigastric abdominal pain rated 10/10. Pain is constant, without known alleviating or exacerbating factors. Associated symptoms include vomiting and back pain, which have since resolved. She denies diarrhea, nausea, chills, fever, or sweats. She is currently menstruating. Notable for recent Moy catheter placement. Denies prior similar episodes. PMHx: hypothyroidism Pshx: myomectomy and gastric bypas Home Meds:Sumatriptan (Imitrex) 50 mg PO BID,Protonix, Synthroid Allergies: NKDA Social History: Non-smoker, Denies alcohol or illicit drug use. Lives independently PN: 09/13/2024 Patient is a 44-year-old female with a past medical history of hypothyroidism presented to the ED with epigastric pain for the past 3 days. According to the patient pain is mainly located in the epigastrium region with radiation towards the back and a little bit to the right flank. It is associated with nausea and vomiting. No diarrhea. Of note patient recently had a myomectomy which was done about 6 weeks ago no complications reported. Today she denies any fever chills sweating. In the ED her initial vitals were grossly unremarkable, lab work was also unremarkable other than elevated liver enzymes. CT abdomen revealed. Enlarged lobulated multi-cystic cervix. Considerations include cervicitis, multiple nabothian cysts or malignancy. Cystic appearing left adnexal structure may represent ovarian cysts versus possible dilated fallopian tube. Gallbladder scan revealed Cholelithiasis and sludge in the gallbladder. There is no thickened gallbladder wall. Negative sonographic Andrade's sign. Right kidney measures 9 cm. There is no hydronephrosis. PN: 09/14/2024 Patient seen and examined today. Pain is better she said. Her MRCP was negative for choledocholithiasis. Labs today showed LFT levels are improving. it is likely that she might have passed a stone. Patient was also seen by the surgeon for possibility of emergent vs elective surgery. Patient is getting better. Will follow up with surgeon. She is currently NPO. Subjective Review of Systems Constitutional: Denies fever no chills no feeling of malaise HEENT: Denies headache, ear pain, ear discharges, conjunctivitis, nasal discharge throat pain Cardiovascular: Denies chest pain, palpitation, orthopnea, PND, or pedal edema Respiratory: Denies shortness of breath, cough cough, sputum production, hemoptysis, GI: Improving abdominal pain, likely passed a stone. No more nausea, vomiting, NO diarrhea, hematemesis, hematochezia, : Denies frequency, urgency, hematuria, Endocrine: Denies unintentional weight gain or weight loss, feeling of hot flashes, Wesley: Denies easy bruising, bleeding disorders, epistaxis Musculoskeletal: Denies joint pains, muscle aches Psych: No evidence of depression, henry, suicidal ideation Objective vital signs Vital Sign Date Time Temp Pulse Resp B/P (MAP) Pulse Ox O2 Delivery O2 Flow Rate FiO2 09/14/24 13:00 99.1 77 18 100/57 (71) 100 99.1 09/13/24 20:00 Room Air* 0 21 Total Intake and Output 09/13/24 09/13/24 09/14/24 15:00 23:00 07:00 Intake Total 100 ml 1118 ml Balance 100 ml 1118 ml medications Current Medications Medications Dose Ordered Sig/Pennie Route Start Time Stop Time Status Last Admin Dose Admin Ceftriaxone Sodium 50 ml @ 100 mls/hr DAILY@09 IV 09/13/24 09:00 09/14/24 09:14 100 MLS/HR Metronidazole 100 ml @ 100 mls/hr Q8HR IV 09/12/24 22:00 09/14/24 14:43 100 MLS/HR Ibuprofen 400 mg Q6HP PRN PO 09/12/24 21:15 Ketorolac Tromethamine 15 mg Q6HPRN PRN IV 09/12/24 21:15 09/17/24 21:14 Pantoprazole Sodium 40 mg DAILY IV 09/13/24 10:00 09/14/24 09:15 40 MG Acetaminophen 325 mg Q6HP PO 09/13/24 06:00 09/13/24 16:59 325 MG Levothyroxine Sodium 125 mcg QAM@0600 PO 09/13/24 06:00 Sodium Chloride 1,000 ml @ 120 mls/hr Q8H20M IV 09/14/24 10:00 09/14/24 11:15 120 MLS/HR Ondansetron HCl 4 mg Q6HPRN PRN IV 09/14/24 15:45 UNV Examination General Appearance: Alert, Oriented X3, Cooperative, No acute distress HEENT: Atraumatic, PERRLA, EOMI, Mucous membrane moist/pink Respiratory: Clear to auscultation, Normal air movement Cardiovascular: Regular rate, Normal S1, Normal S2, No murmurs, no chest wall tenderness Abdominal: Andrade;s sign negative. tenderness, bowel sounds present, no scars noted Extremities: No clubbing, No cyanosis, No edema, Normal pulses, No tenderness/swelling Skin: No rashes, No breakdown, No significant lesion Neuro: Normal gait, Normal speech, Strength at 5/5 X4 ext, Normal tone, Sensation intact, Cranial nerves 3-12 NL, Reflexes 2+ Psych/Mental Status: Mental status NL, Mood NL laboratory and microbiology Laboratory Tests 09/14/24 05:58 Test 09/14/24 05:58 Range/Units Serum Glucose 82 74-106 mg/dL Microbiology Date/Time Source Procedure Growth Status 09/12/24 19:31 Voided Urine Urine Culture - Final Complete Problem List/Assessment/Plan Problem List/Assessment/Plan Assessment and plan Acute Epigastric pain rule out cholecystitis --> cholelithiasis noted on CT abdomen --> MRCP negative for any choledocholithiasis --> consider HIDA scan Recent history of myomectomy 6 weeks ago multople nabolthin cyst of cervix -benign findings --> obgyn, out patient follow p Acute left hydrosalpinx --> fu with obgyn after discharge, no further intervention needed from ticket manager aspect Obesity grade 2, BMI 35.6 Encouraged healthy lifestyle 1 patient says feeling better Hypothyroidism --> on Synthroid Acute transaminitis--> Improving --> negative hepatitis panel --> liver enzymes downward trending. Likly passed the stone --> follow up on the liver enzymes Diet: clear fluid diet Dvt prophylasix: patient is mobile, encouraged moving Pending surgical note. if The surgeon will do cholecystectomy Goal of care discussed for more than16 minutes, goal full code Case and plan discussed with Dr. Larson Plan discussed with: Patient My Orders My Orders Orders - YUDY DE LA FUENTE Procedure Category Date Status Time Sodium Chloride 0.9% PHA 09/14/24 In Process 10:00 Date of Service: September 14, 2024 Billing Provider: YUE CONTRERAS MD Common Visit Codes: [id number] INP/OBS CARE(HIGH) YUDY DE LA FUENTE September 14, 2024 16:53 YUE CONTRERAS MD September 17, 2024 00:32
[2024-09-14 17:00] VITALS: BP 104/74; PULSE 76; RESP 17; TEMP 98.2; O2SAT 96
[2024-09-14 21:00] VITALS: BP 96/51; PULSE 71; RESP 18; TEMP 98.7; O2SAT 96
--- NOTE | 2024-09-14 22:17 | DVHPN2 ---
Progress Note Date Seen: September 14, 2024 Has the PT tested + for MRSA If YES, has PT been informed?: No Medical Necessity Reason Pt with a Central, PICC or Fol: No Objective vital signs Vital Sign Date Time Temp Pulse Resp B/P (MAP) Pulse Ox O2 Delivery O2 Flow Rate FiO2 09/14/24 17:00 98.2 76 17 104/74 (84) 96 98.2 09/14/24 08:00 Room Air* 0 21 Total Intake and Output 09/13/24 09/13/24 09/14/24 14:59 22:59 06:59 Intake Total 100 ml 1118 ml Balance 100 ml 1118 ml medications Current Medications Medications Dose Ordered Sig/Pennie Route Start Time Stop Time Status Last Admin Dose Admin Ceftriaxone Sodium 50 ml @ 100 mls/hr DAILY@09 IV 09/13/24 09:00 09/14/24 09:14 100 MLS/HR Metronidazole 100 ml @ 100 mls/hr Q8HR IV 09/12/24 22:00 09/14/24 21:38 100 MLS/HR Ibuprofen 400 mg Q6HP PRN PO 09/12/24 21:15 Ketorolac Tromethamine 15 mg Q6HPRN PRN IV 09/12/24 21:15 09/17/24 21:14 Pantoprazole Sodium 40 mg DAILY IV 09/13/24 10:00 09/14/24 09:15 40 MG Acetaminophen 325 mg Q6HP PO 09/13/24 06:00 09/13/24 16:59 325 MG Levothyroxine Sodium 125 mcg QAM@0600 PO 09/13/24 06:00 Sodium Chloride 1,000 ml @ 120 mls/hr Q8H20M IV 09/14/24 10:00 09/14/24 11:15 120 MLS/HR Ondansetron HCl 4 mg Q6HPRN PRN IV 09/14/24 15:45 laboratory and microbiology Laboratory Tests 09/14/24 05:58 Test 09/14/24 05:58 Range/Units Serum Glucose 82 74-106 mg/dL Microbiology Date/Time Source Procedure Growth Status 09/12/24 19:31 Voided Urine Urine Culture - Final Complete Problem List/Assessment/Plan Problem List/Assessment/Plan afebrile vss abd soft LFT TRENDING DOWN CONSIDER SURGERY IF PAIN PERSISTS AND LFT TRENDING DOWN Plan discussed with: Patient My Orders My Orders Orders - KIET DE LOS SANTOS MD Procedure Category Date Status Time Npo (Nothing By DIET 09/15/24 Transmitted Mouth) Diet Breakfast Complete Blood Count LAB 09/15/24 Verified 04:00 Comprehensive LAB 09/15/24 Verified Metabolic Panel 04:00 KIET DE LOS SANTOS MD September 14, 2024 22:17
[2024-09-15 01:00] VITALS: BP 101/66; PULSE 72; RESP 18; TEMP 98; O2SAT 96
[2024-09-15 05:00] VITALS: BP 98/60; PULSE 73; RESP 18; TEMP 98; O2SAT 98
[2024-09-15 05:07] LABS: Chlamydia Trachomatis, NAA Negative (Negative); Neisseria gonorrhoeae, NAA Negative (Negative)
[2024-09-15 07:47] LABS: Albumin 3.8 g/dL (3.2-4.8); Anion Gap 7 (5-15); Aspartate Aminotransferase 31 U/L (13-40); Calcium 9.4 mg/dL (8.7-10.4); Carbon Dioxide 27 mmol/L (20-31); Chloride 105 mmol/L (98-107); Glucose 84 mg/dL (74-106); Potassium 3.7 mmol/L (3.5-5.1); Sodium 139 mmol/L (136-145); Total Protein 6.4 g/dL (5.7-8.2)
[2024-09-15 07:48] LABS: Bilirubin, Total 0.3 mg/dL (0.2-1.0)
[2024-09-15 07:49] LABS: INR 1.08 (0.9-1.15); Partial Thromboplastin Time 31.9 SEC (24.5-34.5); Prothrombin Time 11.4 sec (9.3-11.8)
[2024-09-15 07:51] LABS: Eosinophils # (auto) 0.2 10 ^3/uL (0-0.8); Hematocrit 30.7 % (36.0-46.0); Monocytes # (auto) 0.5 10 ^3/uL (0-1.3); Neutrophils # (auto) 5.5 10 ^3/uL (1.6-8.6); Nucleated Red Blood Cells % 0.1 %
[2024-09-15 07:52] LABS: Alanine Aminotransferase 159 U/L (7-40); Alkaline Phosphatase 281 U/L (46-116); BUN/Creatinine Ratio 10.6 (10.0-20.0); Blood Urea Nitrogen < 5 mg/dL (9-23)
[2024-09-15 07:54] LABS: Basophils # (auto) 0.2 10 ^3/uL (0-0.2); Basophils % (auto) 2.2 % (0.0-2.0); Eosinophils % (auto) 2.2 % (0.0-7.0); Hemoglobin 9.7 g/dL (12.2-16.2); Lymphocytes # (auto) 1.7 10 ^3/uL (0.4-5.4); Lymphocytes % (auto) 21.4 % (10.0-50.0); Mean Corpuscular Hemoglobin 23.5 pg (28.0-32.0); Mean Corpuscular Hgb Conc. 31.6 g/dL (32.0-36.0); Mean Corpuscular Volume 74.3 fL (80.0-100.0); Monocytes % (auto) 5.8 % (0.0-12.0); Neutrophils % (auto) 68.4 % (37.0-80.0); Platelet Count (auto) 342 10^3/uL (140-450); Red Blood Cells 4.13 10^6/uL (4.0-5.20); Red Cell Distribution Width 16.5 % (11.8-14.3)
[2024-09-15 08:46] VITALS: BP 105/69; PULSE 78; RESP 15; TEMP 98.7; O2SAT 98
[2024-09-15 13:00] VITALS: BP 118/68; PULSE 82; RESP 15; TEMP 98.7; O2SAT 96
[2024-09-15 16:48] VITALS: BP 113/69; PULSE 72; RESP 15; TEMP 98.5; O2SAT 97
--- NOTE | 2024-09-15 17:38 | DVHPNRES ---
Progress Note Date Seen: September 15, 2024 Resident Creating Document: YUDY DE LA FUENTE RESIDENT Has the PT tested + for MRSA If YES, has PT been informed?: No Medical Necessity Reason Pt with a Central, PICC or Fol: No Medical Necessity Reason Present of Presenting illness 44-year-old female with past medical history of hypothyroidism, status post myomectomy and gastric bypass, presents with 3-day history of severe epigastric abdominal pain rated 10/10. Pain is constant, without known alleviating or exacerbating factors. Associated symptoms include vomiting and back pain, which have since resolved. She denies diarrhea, nausea, chills, fever, or sweats. She is currently menstruating. Notable for recent Moy catheter placement. Denies prior similar episodes. PMHx: hypothyroidism Pshx: myomectomy and gastric bypas Home Meds:Sumatriptan (Imitrex) 50 mg PO BID,Protonix, Synthroid Allergies: NKDA Social History: Non-smoker, Denies alcohol or illicit drug use. Lives independently PN: 09/13/2024 Patient is a 44-year-old female with a past medical history of hypothyroidism presented to the ED with epigastric pain for the past 3 days. According to the patient pain is mainly located in the epigastrium region with radiation towards the back and a little bit to the right flank. It is associated with nausea and vomiting. No diarrhea. Of note patient recently had a myomectomy which was done about 6 weeks ago no complications reported. Today she denies any fever chills sweating. In the ED her initial vitals were grossly unremarkable, lab work was also unremarkable other than elevated liver enzymes. CT abdomen revealed. Enlarged lobulated multi-cystic cervix. Considerations include cervicitis, multiple nabothian cysts or malignancy. Cystic appearing left adnexal structure may represent ovarian cysts versus possible dilated fallopian tube. Gallbladder scan revealed Cholelithiasis and sludge in the gallbladder. There is no thickened gallbladder wall. Negative sonographic Andrade's sign. Right kidney measures 9 cm. There is no hydronephrosis. PN: 09/14/2024 Patient seen and examined today. Pain is better she said. Her MRCP was negative for choledocholithiasis. Labs today showed LFT levels are improving. it is likely that she might have passed a stone. Patient was also seen by the surgeon for possibility of emergent vs elective surgery. Patient is getting better. Will follow up with surgeon. She is currently NPO. PN: 09/14/2024 Patient is seen and examined today. So far her liver enzymes trending down well. Seemed like she has passed the gallstone already. Per the surgeon, the plan is for cholecystectomy today. Following closely. Subjective Review of Systems Constitutional: Denies fever no chills no feeling of malaise HEENT: Denies headache, ear pain, ear discharges, conjunctivitis, nasal discharge throat pain Cardiovascular: Denies chest pain, palpitation, orthopnea, PND, or pedal edema Respiratory: Denies shortness of breath, cough cough, sputum production, hemoptysis, GI: improving abdominal pain, nausea, vomiting, diarrhea, hematemesis, hematochezia, : Denies frequency, urgency, hematuria, Endocrine: Denies unintentional weight gain or weight loss, feeling of hot flashes, Wesley: Denies easy bruising, bleeding disorders, epistaxis Musculoskeletal: Denies joint pains, muscle aches Psych: No evidence of depression, henry, suicidal ideation Objective vital signs Vital Sign Date Time Temp Pulse Resp B/P (MAP) Pulse Ox O2 Delivery O2 Flow Rate FiO2 09/15/24 16:48 98.5 72 15 113/69 (84) 97 98.5 09/15/24 08:00 Room Air* 0 21 Total Intake and Output 09/14/24 09/14/24 09/15/24 15:00 23:00 07:00 Intake Total 450 ml 985 ml 405 ml Balance 450 ml 985 ml 405 ml medications Current Medications Medications Dose Ordered Sig/Pennie Route Start Time Stop Time Status Last Admin Dose Admin Ceftriaxone Sodium 50 ml @ 100 mls/hr DAILY@09 IV 09/13/24 09:00 09/15/24 09:26 100 MLS/HR Metronidazole 100 ml @ 100 mls/hr Q8HR IV 09/12/24 22:00 09/15/24 14:46 100 MLS/HR Ibuprofen 400 mg Q6HP PRN PO 09/12/24 21:15 Ketorolac Tromethamine 15 mg Q6HPRN PRN IV 09/12/24 21:15 09/17/24 21:14 Pantoprazole Sodium 40 mg DAILY IV 09/13/24 10:00 09/15/24 09:26 40 MG Acetaminophen 325 mg Q6HP PO 09/13/24 06:00 09/13/24 16:59 325 MG Levothyroxine Sodium 125 mcg QAM@0600 PO 09/13/24 06:00 09/15/24 06:15 125 MCG Sodium Chloride 1,000 ml @ 120 mls/hr Q8H20M IV 09/14/24 10:00 09/15/24 06:25 120 MLS/HR Ondansetron HCl 4 mg Q6HPRN PRN IV 09/14/24 15:45 Examination General Appearance: Alert, Oriented X3, Cooperative, No acute distress HEENT: Atraumatic, PERRLA, EOMI, Mucous membrane moist/pink Respiratory: Clear to auscultation, Normal air movement Cardiovascular: Regular rate, Normal S1, Normal S2, No murmurs, no chest wall tenderness Abdominal: Mild tenderness, bowel sounds present, no scars noted Extremities: No clubbing, No cyanosis, No edema, Normal pulses, No tenderness/swelling Skin: No rashes, No breakdown, No significant lesion Neuro: Normal gait, Normal speech, Strength at 5/5 X4 ext, Normal tone, Sensation intact, Cranial nerves 3-12 NL, Reflexes 2+ Psych/Mental Status: Mental status NL, Mood NL laboratory and microbiology Laboratory Tests 09/15/24 06:42 Test 09/15/24 06:42 Range/Units Serum Glucose 84 74-106 mg/dL Microbiology Date/Time Source Procedure Growth Status 09/12/24 19:31 Voided Urine Urine Culture - Final Complete Problem List/Assessment/Plan Problem List/Assessment/Plan Assessment and plan Acute Epigastric pain rule out cholecystitis --> cholelithiasis noted on CT abdomen --> MRCP negative for any choledocholithiasis --> consider HIDA scan Cholelithiasis --> plan for cholecystectomy today -> follow closely Recent history of myomectomy 6 weeks ago multople nabolthin cyst of cervix -benign findings --> obgyn, out patient follow p Acute left hydrosalpinx --> fu with obgyn after discharge, no further intervention needed from bolt man aspect Enlarged lobulated multi-cystic cervix. Considerations include cervicitis, multiple nabothian cysts or malignancy. Cystic appearing left adnexal structure may represent ovarian cysts versus possible dilated fallopian tube. Obesity grade 2, BMI 35.6 Encouraged healthy lifestyle 1 patient says feeling better Hypothyroidism --> on Synthroid Acute transaminitis--> Improving --> negative hepatitis panel --> liver enzymes downward trending. Likely passed the stone --> follow up on the liver enzymes Diet: clear fluid diet Dvt prophylasix: patient is mobile, encouraged moving Goal of care discussed for more than16 minutes, goal full code Case and plan discussed with Dr. Larson Plan discussed with: Patient Date of Service: September 15, 2024 Billing Provider: YUE CONTRERAS MD Common Visit Codes: [id number] INP/OBS CARE(HIGH) YUDY DE LA FUENTE RESIDENT September 15, 2024 17:38 YUE CONTRERAS MD September 17, 2024 01:25
[2024-09-15 21:00] VITALS: BP 112/75; PULSE 71; RESP 20; TEMP 98.4; O2SAT 97
--- NOTE | 2024-09-15 22:51 | DVHPN2 ---
Progress Note Date Seen: September 15, 2024 Has the PT tested + for MRSA If YES, has PT been informed?: No Medical Necessity Reason Pt with a Central, PICC or Fol: No Objective vital signs Vital Sign Date Time Temp Pulse Resp B/P (MAP) Pulse Ox O2 Delivery O2 Flow Rate FiO2 09/15/24 21:00 98.4 71 20 112/75 (87) 97 98.4 09/15/24 08:00 Room Air* 0 21 Total Intake and Output 09/14/24 09/14/24 09/15/24 15:00 23:00 07:00 Intake Total 450 ml 985 ml 405 ml Balance 450 ml 985 ml 405 ml medications Current Medications Medications Dose Ordered Sig/Pennie Route Start Time Stop Time Status Last Admin Dose Admin Ceftriaxone Sodium 50 ml @ 100 mls/hr DAILY@09 IV 09/13/24 09:00 09/15/24 09:26 100 MLS/HR Metronidazole 100 ml @ 100 mls/hr Q8HR IV 09/12/24 22:00 09/15/24 22:21 100 MLS/HR Ibuprofen 400 mg Q6HP PRN PO 09/12/24 21:15 Ketorolac Tromethamine 15 mg Q6HPRN PRN IV 09/12/24 21:15 09/17/24 21:14 Pantoprazole Sodium 40 mg DAILY IV 09/13/24 10:00 09/15/24 09:26 40 MG Acetaminophen 325 mg Q6HP PO 09/13/24 06:00 09/13/24 16:59 325 MG Levothyroxine Sodium 125 mcg QAM@0600 PO 09/13/24 06:00 09/15/24 06:15 125 MCG Sodium Chloride 1,000 ml @ 120 mls/hr Q8H20M IV 09/14/24 10:00 09/15/24 22:21 120 MLS/HR Ondansetron HCl 4 mg Q6HPRN PRN IV 09/14/24 15:45 laboratory and microbiology Laboratory Tests 09/15/24 06:42 Test 09/15/24 06:42 Range/Units Serum Glucose 84 74-106 mg/dL Microbiology Date/Time Source Procedure Growth Status 09/12/24 19:31 Voided Urine Urine Culture - Final Complete Problem List/Assessment/Plan Problem List/Assessment/Plan afebrile vss abd soft LFT TRENDING DOWN CONSIDER SURGERY IF PAIN PERSISTS AND LFT TRENDING DOWN REPEAT LABS AM NPO AFTER MN Plan discussed with: Patient My Orders My Orders Orders - KIET DE LOS SANTOS MD Procedure Category Date Status Time Complete Blood Count LAB 09/16/24 Verified 04:00 Comprehensive LAB 09/16/24 Verified Metabolic Panel 04:00 Npo (Nothing By DIET 09/16/24 Transmitted Mouth) Diet Breakfast KIET DE LOS SANTOS MD September 15, 2024 22:51
[2024-09-16] VITALS (8 sets, daily range): BP systolic 101–110; BP diastolic 65–74; PULSE 62–99; RESP 12–20; TEMP 97.8–98.6; O2SAT 74–97
[2024-09-16 06:14] LABS: Basophils # (auto) 0.1 10 ^3/uL (0-0.2); Basophils % (auto) 1.4 % (0.0-2.0); Eosinophils # (auto) 0.2 10 ^3/uL (0-0.8); Eosinophils % (auto) 2.6 % (0.0-7.0); Hematocrit 31.5 % (36.0-46.0); Hemoglobin 9.9 g/dL (12.2-16.2); Lymphocytes # (auto) 1.6 10 ^3/uL (0.4-5.4); Mean Corpuscular Hemoglobin 23.4 pg (28.0-32.0); Mean Corpuscular Hgb Conc. 31.5 g/dL (32.0-36.0); Mean Corpuscular Volume 74.4 fL (80.0-100.0); Monocytes # (auto) 0.6 10 ^3/uL (0-1.3); Monocytes % (auto) 7.4 % (0.0-12.0); Neutrophils # (auto) 5.6 10 ^3/uL (1.6-8.6); Neutrophils % (auto) 68.6 % (37.0-80.0); Platelet Count (auto) 349 10^3/uL (140-450); Red Blood Cells 4.24 10^6/uL (4.0-5.20); Red Cell Distribution Width 16.6 % (11.8-14.3); White Blood Cell 8.1 10^3/uL (4.4-10.8)
[2024-09-16 06:37] LABS: Albumin 3.8 g/dL (3.2-4.8); Anion Gap 8 (5-15); Bilirubin, Total 0.3 mg/dL (0.2-1.0); Calcium 8.8 mg/dL (8.7-10.4); Carbon Dioxide 26 mmol/L (20-31); Chloride 107 mmol/L (98-107); Glucose 84 mg/dL (74-106); Potassium 3.6 mmol/L (3.5-5.1); Sodium 141 mmol/L (136-145); Total Protein 6.4 g/dL (5.7-8.2)
[2024-09-16 07:01] LABS: Alanine Aminotransferase 140 U/L (7-40); Alkaline Phosphatase 240 U/L (46-116); Aspartate Aminotransferase 69 U/L (13-40); BUN/Creatinine Ratio 10.9 (10.0-20.0); Blood Urea Nitrogen < 5 mg/dL (9-23)
[2024-09-16] MEDS: ceFAZolin 2 GM/D5W50ml 50 ML IV ONE (09:20)
[2024-09-16] MEDS ORDERED: MIDAZOLAM HCL 2MG/2ML 2ml VIAL (1mg/ml) ONE (09:26)
[2024-09-16] MEDS ORDERED: LIDOCAINE HCL 100 MG/5ML (2%) SYRG INJ IV ONE (09:26)
[2024-09-16] MEDS ORDERED: fentaNYL CITRATE 100 MCG/2 ML VL ONE (09:26)
[2024-09-16] MEDS ORDERED: ROCURONIUM 10MG/ML 10ML VIAL IV ONE (09:26)
[2024-09-16] MEDS ORDERED: PROPOFOL 10 MG/ML 20 ML IV ONE (09:26)
[2024-09-16] MEDS ORDERED: GLYCOPYRROLATE 0.2 MG/ML 1ML VIAL ONE (09:30)
[2024-09-16] MEDS ORDERED: DexAMETHasone SOD PHOS 10MG/1ML VIAL INJ ONE (09:31)
[2024-09-16] MEDS ORDERED: ONDANSETRON HCL 4 MG/2 ML VIAL ONE (09:31)
[2024-09-16] MEDS ORDERED: PHENYLEPHRINE HCL 10 MG/ML VL ONE (09:31)
[2024-09-16] MEDS ORDERED: diphenhdrAMINE HCL 50 MG/1 ML VL ONE (09:31)
[2024-09-16] MEDS ORDERED: METOCLOPRAMIDE HCL 5MG/ml INJ 2ml VIAL ONE (09:31)
[2024-09-16] MEDS ORDERED: HYDROmorphone HCL 2 MG/ML VL/or syr ONE (10:05)
[2024-09-16] MEDS: BUPIVACAINE 0.25% INJ 50ML VIAL ONE (10:25)
[2024-09-16] MEDS ORDERED: SUGAMMADEX 200mg/2ml Vial (100MG/ML) IV ONE (10:26)
--- NOTE | 2024-09-16 10:48 | DVHOP2 ---
Operative Report [id number] AC CHOLECYSTITIS LAP/OPEN CHOLECYSTECTOMY EBL 25 CC NO DRAIN NO COMPLICATIONS KIET DE LOS SANTOS MD September 16, 2024 10:48
[2024-09-16] MEDS: ONDANSETRON HCL 4 MG/2 ML VIAL IV ONE (11:15)
--- NOTE | 2024-09-16 11:25 | DVHOP ---
DATE OF SURGERY: 09/16/2024 PREOPERATIVE DIAGNOSIS: Acute cholecystitis. POSTOPERATIVE DIAGNOSIS: Acute cholecystitis. PROCEDURE: Laparoscopic cholecystectomy. SURGEON: Nikolai Rivera MD PLASTIC MIXER: None. ANESTHESIA: General. BLOOD LOSS: Close to 25 mL. DRAINS: No drain was used. COMPLICATIONS: No complications encountered. DESCRIPTION OF PROCEDURE: The patient was prepped and draped in the usual sterile fashion in the supine position and an infraumbilical incision was applied and was taken down to the fascia. The Veress needle was introduced and CO2 insufflation was started to pressure of 15 mmHg. The needle was withdrawn, replaced by the 5 mm trocar, the telescope introduced, and the gallbladder was visualized. It was acutely inflamed. There were some adhesions. A 12 mm port was applied close to the xiphisternum and two 5 mm ports were applied more laterally in the subcostal line. With the instruments in place, the gallbladder was grasped at the fundus and the adhesions were taken down using Harmonic device. The infundibulum was grasped and the cystic duct and artery were separately dissected out and clipped proximally and distally using the Hem-o-dee clips and divided in between making sure CBD was kept out of harm's way at all times. The gallbladder was detached from the liver bed using Harmonic dissection, placed in an Endo Catch bag, and removed from the xiphisternal wound without any complication. Hemostasis was secured. Irrigation fluid was removed. The port sites were free from bleeding. Endo Close suture used for the fascial closure of the xiphisternal wound. All the ports were withdrawn after all the CO2 had been let out and the patient was placed back supine. The wounds were then brought together using 3-0 Monocryl suture in a subcuticular fashion. Surgical glue was applied. The patient tolerated procedure well and was taken back to the recovery room in stable condition. MD THERESE Garner/LUCRETIA TID: [id number] RECEIPT: [id number] cc: Sheri Vigil
[2024-09-16] MEDS: ALBUMIN 5% 250 ML IV ONE ×2 (11:28→11:30)
[2024-09-16] MEDS: ACETAMINOPHEN IV 100 ML IV ONE (11:52)
[2024-09-16] MEDS: ACETAMINOPHEN IV 1000 MG/100ML (10MG/ML) IV ONE (12:00)
--- NOTE | 2024-09-16 15:02 | DVHPN2 ---
Subjective Present of Presenting illness 44-year-old female with past medical history of hypothyroidism, status post myomectomy and gastric bypass, presents with 3-day history of severe epigastric abdominal pain rated 10/10. Pain is constant, without known alleviating or exacerbating factors. Associated symptoms include vomiting and back pain, which have since resolved. She denies diarrhea, nausea, chills, fever, or sweats. She is currently menstruating. Notable for recent Moy catheter placement. Denies prior similar episodes. PMHx: hypothyroidism Pshx: myomectomy and gastric bypas Home Meds:Sumatriptan (Imitrex) 50 mg PO BID,Protonix, Synthroid Allergies: NKDA Social History: Non-smoker, Denies alcohol or illicit drug use. Lives independently Patient examined at bedside today Reviewed: H&P Changes from previous H/P or p: No Changes General: Per HPI Objective Vitals Vital Signs Date Time Temp Pulse Resp B/P (MAP) Pulse Ox O2 Delivery O2 Flow Rate FiO2 09/16/24 11:50 99 15 110/74 (86) 95 09/16/24 11:50 Room Air 09/16/24 10:50 97.0 97.0 09/16/24 10:50 10.0 100 Intake/Output Intake and Output 09/16/24 07:00 Intake Total 1845 ml Balance 1845 ml Intake Oral 325 ml IV Total 1520 ml # Voids 10 # Bowel Movements 1 Exam General Appearance: Alert, Oriented X3, Cooperative, No acute distress HEENT: Atraumatic, PERRLA, EOMI, Mucous membrane moist/pink Respiratory: Clear to auscultation, Normal air movement Cardiovascular: Regular rate, Normal S1, Normal S2, No murmurs, no chest wall tenderness Abdominal: Mild tenderness, bowel sounds present, lap rustam scars present CDI no dressing. Extremities: No clubbing, No cyanosis, No edema, Normal pulses, No tenderness/swelling Skin: No rashes, No breakdown, No significant lesion Neuro: Normal gait, Normal speech, Strength at 5/5 X4 ext, Normal tone, Sensation intact, Cranial nerves 3-12 NL, Reflexes 2+ Psych/Mental Status: Mental status NL, Mood NL Medications Current Medications Medications Dose Ordered Sig/Pennie Route Start Time Stop Time Status Last Admin Dose Admin Ceftriaxone Sodium 50 ml @ 100 mls/hr DAILY@09 IV 09/13/24 09:00 09/16/24 13:07 100 MLS/HR Metronidazole 100 ml @ 100 mls/hr Q8HR IV 09/12/24 22:00 09/16/24 05:41 100 MLS/HR Ibuprofen 400 mg Q6HP PRN PO 09/12/24 21:15 Ketorolac Tromethamine 15 mg Q6HPRN PRN IV 09/12/24 21:15 09/17/24 21:14 Pantoprazole Sodium 40 mg DAILY IV 09/13/24 10:00 09/16/24 13:07 40 MG Acetaminophen 325 mg Q6HP PO 09/13/24 06:00 09/16/24 13:07 325 MG Levothyroxine Sodium 125 mcg QAM@0600 PO 09/13/24 06:00 09/16/24 05:42 125 MCG Sodium Chloride 1,000 ml @ 120 mls/hr Q8H20M IV 09/14/24 10:00 09/16/24 07:44 120 MLS/HR Ondansetron HCl 4 mg Q6HPRN PRN IV 09/14/24 15:45 Laboratory Results Laboratory Tests 09/16/24 05:39 Chemistry Test 09/16/24 05:39 Albumin 3.8 g/dL (3.2-4.8) Calcium Level 8.8 mg/dL (8.7-10.4) Total Protein 6.4 g/dL (5.7-8.2) LFT Test 09/16/24 05:39 Alanine Aminotransferase (ALT) 140 U/L (7-40) H Alkaline Phosphatase 240 U/L (46-116) H Aspartate Amino Transferase (AST) 69 U/L (13-40) H Total Bilirubin 0.3 mg/dL (0.2-1.0) Urinalysis Test 09/12/24 19:31 Urine Color Light-orange (Yellow) Urine Clarity Turbid (Clear) H Urine pH 6.5 (5.0-9.0) Urine Specific [place] 1.024 (1.001-1.035) Urine Protein Trace (Negative) H Urine Ketones Trace (Negative) Urine Blood 3+ /uL (Negative) H Urine Nitrite Negative (Negative) Urine Bilirubin Negative (Negative) Urine Urobilinogen 4 mg/dL (Negative) H Urine Leukocyte Esterase 1+ /uL (Negative) Urine RBC 3594 /hpf (0 - 4) Urine Microscopic WBC 25 /HPF (0-5) H Urine Squamous Epithelial Cells Few /hpf (<5) Urine Bacteria None seen /hpf (None Seen) Urine Mucus Few (None Seen) Urine Glucose Normal mg/dL (Normal) Microbiology Microbiology Date/Time Source Procedure Growth Status 09/12/24 19:31 Voided Urine Urine Culture - Final Complete Labs and/or images reviewed: Labs reviewed by me, Image(s) reviewed by me Assessment/Plan Assessment/Plan Update 09/16- Patient was status post lap rustam today. She was doing well after procedure,. Patient endorses that she was trying to avoid using IV morphine and we will try to use oral analgesia only. Appears in good spirits. We will continue IV antibiotics. Appreciate Surgery following. We will continue monitoring. Acute Epigastric pain due to below Ruled out cholecystitis Symptomatic cholelithiasis --> cholelithiasis noted on CT abdomen --> MRCP negative for any choledocholithiasis --> consider HIDA scan --> laparoscopic cholecystectomy on 09/16/2024 -> follow closely Recent history of myomectomy 6 weeks ago multople nabolthin cyst of cervix -benign findings --> obgyn, out patient follow p Acute left hydrosalpinx --> fu with obgyn after discharge, no further intervention needed from sales and service engineer aspect Enlarged lobulated multi-cystic cervix. Considerations include cervicitis, multiple nabothian cysts or malignancy. Cystic appearing left adnexal structure may represent ovarian cysts versus possible dilated fallopian tube. Obesity grade 2, BMI 35.6 Encouraged healthy lifestyle 1 patient says feeling better Hypothyroidism --> on Synthroid Acute transaminitis--> Improving --> negative hepatitis panel --> liver enzymes downward trending. Likely passed the stone --> follow up on the liver enzymes Diet: clear fluid diet Dvt prophylasix: patient is mobile, encouraged moving Goal of care discussed for more than16 minutes, goal full code Plan discussed with: Patient Date of Service: September 16, 2024 Billing Provider: YUE CONTRERAS MD Common Visit Codes: [id number] INP/OBS CARE(HIGH) YUE CONTRERAS MD September 16, 2024 15:02
[2024-09-16] MEDS: KETOROLAC TROMETH 30 MG/ML 1ML VIAL IV PRN (16:34)
[2024-09-17 01:09] VITALS: BP 105/68; PULSE 71; RESP 18; TEMP 97.4; O2SAT 95
[2024-09-17 05:00] VITALS: BP 104/64; PULSE 70; RESP 19; TEMP 97.4; O2SAT 96
[2024-09-17 06:25] LABS: Basophils # (auto) 0.1 10 ^3/uL (0-0.2); Basophils % (auto) 0.7 % (0.0-2.0); Eosinophils # (auto) 0.1 10 ^3/uL (0-0.8); Eosinophils % (auto) 0.6 % (0.0-7.0); Hematocrit 31.1 % (36.0-46.0); Hemoglobin 9.8 g/dL (12.2-16.2); Lymphocytes # (auto) 2.1 10 ^3/uL (0.4-5.4); Lymphocytes % (auto) 13.9 % (10.0-50.0); Mean Corpuscular Hemoglobin 23.6 pg (28.0-32.0); Mean Corpuscular Hgb Conc. 31.6 g/dL (32.0-36.0); Mean Corpuscular Volume 74.6 fL (80.0-100.0); Monocytes % (auto) 6.3 % (0.0-12.0); Neutrophils % (auto) 78.5 % (37.0-80.0); Nucleated Red Blood Cells % 0.1 %; Platelet Count (auto) 374 10^3/uL (140-450); Red Blood Cells 4.17 10^6/uL (4.0-5.20); Red Cell Distribution Width 16.3 % (11.8-14.3); White Blood Cell 15.3 10^3/uL (4.4-10.8)
[2024-09-17 06:48] LABS: Albumin 3.8 g/dL (3.2-4.8); Anion Gap 9 (5-15); Bilirubin, Total 0.4 mg/dL (0.2-1.0); Calcium 9.7 mg/dL (8.7-10.4); Carbon Dioxide 25 mmol/L (20-31); Glucose 80 mg/dL (74-106); Potassium 3.9 mmol/L (3.5-5.1); Sodium 141 mmol/L (136-145); Total Protein 6.3 g/dL (5.7-8.2)
[2024-09-17 06:51] LABS: Alanine Aminotransferase 128 U/L (7-40); Alkaline Phosphatase 213 U/L (46-116); Aspartate Aminotransferase 70 U/L (13-40); BUN/Creatinine Ratio 10.6 (10.0-20.0); Blood Urea Nitrogen < 5 mg/dL (9-23); Chloride 107 mmol/L (98-107)
[2024-09-17 09:29] VITALS: BP 113/75; PULSE 72; RESP 16; TEMP 98.1; O2SAT 96
[2024-09-17 13:26] VITALS: BP 104/61; PULSE 77; RESP 16; TEMP 98.2; O2SAT 96
[2024-09-17] MEDS ORDERED: ENOXAPARIN SOD 60 MG/0.6 ML SYRINGE SC ONE (14:30)
--- NOTE | 2024-09-17 14:30 | DVHPNRES ---
Progress Note Date Seen: September 17, 2024 Resident Creating Document: YUDY DE LA FUENTE RESIDENT Has the PT tested + for MRSA If YES, has PT been informed?: No Medical Necessity Reason Pt with a Central, PICC or Fol: No Medical Necessity Reason Present of Presenting illness 44-year-old female with past medical history of hypothyroidism, status post myomectomy and gastric bypass, presents with 3-day history of severe epigastric abdominal pain rated 10/10. Pain is constant, without known alleviating or exacerbating factors. Associated symptoms include vomiting and back pain, which have since resolved. She denies diarrhea, nausea, chills, fever, or sweats. She is currently menstruating. Notable for recent Moy catheter placement. Denies prior similar episodes. PMHx: hypothyroidism Pshx: myomectomy and gastric bypas Home Meds:Sumatriptan (Imitrex) 50 mg PO BID,Protonix, Synthroid Allergies: NKDA Social History: Non-smoker, Denies alcohol or illicit drug use. Lives independently PN: 09/13/2024 Patient is a 44-year-old female with a past medical history of hypothyroidism presented to the ED with epigastric pain for the past 3 days. According to the patient pain is mainly located in the epigastrium region with radiation towards the back and a little bit to the right flank. It is associated with nausea and vomiting. No diarrhea. Of note patient recently had a myomectomy which was done about 6 weeks ago no complications reported. Today she denies any fever chills sweating. In the ED her initial vitals were grossly unremarkable, lab work was also unremarkable other than elevated liver enzymes. CT abdomen revealed. Enlarged lobulated multi-cystic cervix. Considerations include cervicitis, multiple nabothian cysts or malignancy. Cystic appearing left adnexal structure may represent ovarian cysts versus possible dilated fallopian tube. Gallbladder scan revealed Cholelithiasis and sludge in the gallbladder. There is no thickened gallbladder wall. Negative sonographic Andrade's sign. Right kidney measures 9 cm. There is no hydronephrosis. PN: 09/14/2024 Patient seen and examined today. Pain is better she said. Her MRCP was negative for choledocholithiasis. Labs today showed LFT levels are improving. it is likely that she might have passed a stone. Patient was also seen by the surgeon for possibility of emergent vs elective surgery. Patient is getting better. Will follow up with surgeon. She is currently NPO. PN: 09/15/2024 Patient is seen and examined today. So far her liver enzymes trending down well. Seemed like she has passed the gallstone already. Per the surgeon, the plan is for cholecystectomy today. Following closely. PN: 09/17/2024 Patient seen and examined. She is POD 1. She is doing well. She endorses pain and took pain medication yesterday. Incision site looks great. She is tolerating fluids PO and ambulating. Pending surgical clearance. Subjective Review of Systems Constitutional: Denies fever no chills no feeling of malaise, mild distress HEENT: Denies headache, ear pain, ear discharges, conjunctivitis, nasal discharge throat pain Cardiovascular: Denies chest pain, palpitation, orthopnea, PND, or pedal edema Respiratory: Denies shortness of breath, cough cough, sputum production, hemoptysis, GI: Denies abdominal pain, nausea, vomiting, diarrhea, hematemesis, hematochezia, : Denies frequency, urgency, hematuria, Endocrine: Denies unintentional weight gain or weight loss, feeling of hot flashes, Wesley: Denies easy bruising, bleeding disorders, epistaxis Musculoskeletal: Denies joint pains, muscle aches Psych: No evidence of depression, henry, suicidal ideation Objective vital signs Vital Sign Date Time Temp Pulse Resp B/P (MAP) Pulse Ox O2 Delivery O2 Flow Rate FiO2 09/17/24 13:26 98.2 77 16 104/61 (75) 96 98.2 09/17/24 07:35 Room Air* 0 21 Total Intake and Output 09/16/24 09/16/24 09/17/24 15:00 23:00 07:00 Intake Total 50 ml 700 ml 2096 ml Balance 50 ml 700 ml 2096 ml medications Current Medications Medications Dose Ordered Sig/Pennie Route Start Time Stop Time Status Last Admin Dose Admin Ceftriaxone Sodium 50 ml @ 100 mls/hr DAILY@09 IV 09/13/24 09:00 09/17/24 08:30 100 MLS/HR Metronidazole 100 ml @ 100 mls/hr Q8HR IV 09/12/24 22:00 09/17/24 05:03 100 MLS/HR Ibuprofen 400 mg Q6HP PRN PO 09/12/24 21:15 Ketorolac Tromethamine 15 mg Q6HPRN PRN IV 09/12/24 21:15 09/17/24 21:14 09/17/24 10:21 15 MG Pantoprazole Sodium 40 mg DAILY IV 09/13/24 10:00 09/17/24 08:29 40 MG Acetaminophen 325 mg Q6HP PO 09/13/24 06:00 09/16/24 13:07 325 MG Levothyroxine Sodium 125 mcg QAM@0600 PO 09/13/24 06:00 09/17/24 05:03 125 MCG Sodium Chloride 1,000 ml @ 120 mls/hr Q8H20M IV 09/14/24 10:00 09/17/24 05:03 120 MLS/HR Ondansetron HCl 4 mg Q6HPRN PRN IV 09/14/24 15:45 Examination General Appearance: Alert, Oriented X3, Cooperative, No acute distress HEENT: Atraumatic, PERRLA, EOMI, Mucous membrane moist/pink Respiratory: Clear to auscultation, Normal air movement Cardiovascular: Regular rate, Normal S1, Normal S2, No murmurs, no chest wall tenderness Abdominal: NO distention, mild tenderness, pending bowel sounds, Extremities: No clubbing, No cyanosis, No edema, Normal pulses, No tenderness/swelling Skin: No rashes, No breakdown, No significant lesion Neuro: Normal gait, Normal speech, Strength at 5/5 X4 ext, Normal tone, Sensation intact, Cranial nerves 3-12 NL, Reflexes 2+ Psych/Mental Status: Mental status NL, Mood NL laboratory and microbiology Laboratory Tests 09/17/24 05:02 Test 09/17/24 05:02 Range/Units Serum Glucose 80 74-106 mg/dL Microbiology Date/Time Source Procedure Growth Status 09/12/24 19:31 Voided Urine Urine Culture - Final Complete Problem List/Assessment/Plan Problem List/Assessment/Plan Assessment and plan Acute Epigastric pain rule out cholecystitis --> cholelithiasis noted on CT abdomen --> MRCP negative for any choledocholithiasis --> consider HIDA scan Cholelithiasis; S/p cholecystectomy --> POD 1 --> surgery following --> Continue current antibiotics --> Clear fluid diet -> Close monitoring Recent history of myomectomy 6 weeks ago multople nabolthin cyst of cervix -benign findings --> obgyn, out patient follow p Acute left hydrosalpinx --> fu with obgyn after discharge, no further intervention needed from detention attendant aspect Enlarged lobulated multi-cystic cervix. Considerations include cervicitis, multiple nabothian cysts or malignancy. Cystic appearing left adnexal structure may represent ovarian cysts versus possible dilated fallopian tube. Obesity grade 2, BMI 35.6 --> Encouraged healthy lifestyle 1 patient says feeling better Hypothyroidism --> on Synthroid Acute transaminitis--> Improving --> negative hepatitis panel --> liver enzymes downward trending. Likely passed the stone --> follow up on the liver enzymes Leukocytosis, likely reactive 09/17/2024 -Repeat CBC tomorrow Diet: clear fluid diet Dvt prophylasix: lovenox Goal of care discussed for more than16 minutes, goal full code Case and plan discussed with Dr. Larson Plan discussed with: Patient YUDY DE LA FUENTE RESIDENT September 17, 2024 14:30
[2024-09-17] MEDS: ENOXAPARIN SOD 40 MG/0.4 ML SYRINGE SC SCH (15:37)
[2024-09-17 16:51] VITALS: BP 104/63; PULSE 76; RESP 16; TEMP 98.2; O2SAT 96
[2024-09-17] MEDS: HYDROcodone-ACET 10/325MG TAB PO PRN (17:33)
[2024-09-17 21:00] VITALS: BP 93/50; PULSE 77; RESP 17; TEMP 97.6; O2SAT 94
[2024-09-18 01:00] VITALS: BP 95/62; PULSE 70; RESP 17; TEMP 98.2; O2SAT 95
[2024-09-18 05:00] VITALS: BP 103/67; PULSE 68; RESP 17; TEMP 97.4; O2SAT 99
[2024-09-18 06:04] LABS: Basophils # (auto) 0.1 10 ^3/uL (0-0.2); Hemoglobin 8.8 g/dL (12.2-16.2); Mean Corpuscular Hemoglobin 23.7 pg (28.0-32.0); Monocytes # (auto) 0.7 10 ^3/uL (0-1.3); Red Blood Cells 3.72 10^6/uL (4.0-5.20)
[2024-09-18 06:07] LABS: Basophils % (auto) 1.6 % (0.0-2.0); Eosinophils # (auto) 0.2 10 ^3/uL (0-0.8); Eosinophils % (auto) 1.7 % (0.0-7.0); Hematocrit 27.6 % (36.0-46.0); Lymphocytes # (auto) 2.2 10 ^3/uL (0.4-5.4); Lymphocytes % (auto) 23.9 % (10.0-50.0); Mean Corpuscular Volume 74.1 fL (80.0-100.0); Monocytes % (auto) 7.5 % (0.0-12.0); Neutrophils # (auto) 6.1 10 ^3/uL (1.6-8.6); Neutrophils % (auto) 65.3 % (37.0-80.0); Platelet Count (auto) 336 10^3/uL (140-450); Red Cell Distribution Width 16.1 % (11.8-14.3); White Blood Cell 9.3 10^3/uL (4.4-10.8)
[2024-09-18 06:17] LABS: Calcium 9.2 mg/dL (8.7-10.4); Chloride 106 mmol/L (98-107); Sodium 140 mmol/L (136-145)
[2024-09-18 06:18] LABS: Anion Gap 8 (5-15); Carbon Dioxide 26 mmol/L (20-31); Potassium 3.3 mmol/L (3.5-5.1)
[2024-09-18 06:23] LABS: BUN/Creatinine Ratio 11.1 (10.0-20.0); Glucose 84 mg/dL (74-106)
[2024-09-18 06:24] LABS: Blood Urea Nitrogen 5 mg/dL (9-23)
[2024-09-18] MEDS: POTASSIUM EFFERVESENT TAB 25 MEQ PO ONE (08:46)
[2024-09-18 09:15] VITALS: BP 112/75; PULSE 78; RESP 16; TEMP 97.9; O2SAT 97
[2024-09-18] MEDS: ONDANSETRON HCL 4 MG/2 ML VIAL IV PRN (09:16)
[2024-09-18 10:42] LABS: Albumin 3.5 g/dL (3.2-4.8); Total Protein 5.8 g/dL (5.7-8.2)
[2024-09-18 10:43] LABS: Alanine Aminotransferase 117 U/L (7-40); Alkaline Phosphatase 172 U/L (46-116); Aspartate Aminotransferase 59 U/L (13-40); Bilirubin, Direct < 0.1 mg/dL (<0.3); Bilirubin, Total 0.3 mg/dL (0.2-1.0)
[2024-09-18 12:54] VITALS: BP 103/60; PULSE 75; RESP 16; TEMP 98.1; O2SAT 97
[2024-09-18 16:54] VITALS: BP 108/60; PULSE 87; RESP 16; TEMP 98.3; O2SAT 96
--- NOTE | 2024-09-18 17:33 | DVHDSRES ---
Discharge Summary Date of Admission Resident Creating Document: YUDY DE LA FUENTE RESIDENT September 12, 2024 at 21:01 Date of Discharge: September 18, 2024 Admitting Diagnosis Epigastric pain Labs/Diagnostic Data: Laboratory Results Test 09/18/24 04:45 09/16/24 05:39 09/15/24 06:42 09/12/24 19:31 White Blood Count 9.3 10^3/uL (4.4-10.8) Red Blood Count 3.72 10^6/uL (4.0-5.20) Hemoglobin 8.8 g/dL (12.2-16.2) Hematocrit 27.6 % (36.0-46.0) Mean Corpuscular Volume 74.1 fL (80.0-100.0) Mean Corpuscular Hemoglobin 23.7 pg (28.0-32.0) Mean Corpuscular Hemoglobin Concent 32.0 g/dL (32.0-36.0) Red Cell Distribution Width 16.1 % (11.8-14.3) Platelet Count 336 10^3/uL (140-450) Mean Platelet Volume 8.2 fL (6.9-10.8) Neutrophils (%) (Auto) 65.3 % (37.0-80.0) Lymphocytes (%) (Auto) 23.9 % (10.0-50.0) Monocytes (%) (Auto) 7.5 % (0.0-12.0) Eosinophils (%) (Auto) 1.7 % (0.0-7.0) Basophils (%) (Auto) 1.6 % (0.0-2.0) Neutrophils # (Auto) 6.1 10 ^3/uL (1.6-8.6) Lymphocytes # (Auto) 2.2 10 ^3/uL (0.4-5.4) Monocytes # (Auto) 0.7 10 ^3/uL (0-1.3) Eosinophils # (Auto) 0.2 10 ^3/uL (0-0.8) Basophils # (Auto) 0.1 10 ^3/uL (0-0.2) Nucleated Red Blood Cells 0.0 % Sodium Level 140 mmol/L (136-145) Potassium Level 3.3 mmol/L (3.5-5.1) Chloride Level 106 mmol/L (98-107) Carbon Dioxide Level 26 mmol/L (20-31) Anion Gap 8 (5-15) Blood Urea Nitrogen 5 mg/dL (9-23) Creatinine 0.45 mg/dL (0.550-1.02) Glomerular Filtration Rate Calc 122 mL/min (>90) BUN/Creatinine Ratio 11.1 (10.0-20.0) Serum Glucose 84 mg/dL (74-106) Calcium Level 9.2 mg/dL (8.7-10.4) Total Bilirubin 0.3 mg/dL (0.2-1.0) Direct Bilirubin < 0.1 mg/dL (<0.3) Aspartate Amino Transferase (AST) 59 U/L (13-40) Alanine Aminotransferase (ALT) 117 U/L (7-40) Alkaline Phosphatase 172 U/L (46-116) Total Protein 5.8 g/dL (5.7-8.2) Albumin 3.5 g/dL (3.2-4.8) Beta HCG, Quantitative 0.8 mIU/mL (1.5-4.2) Prothrombin Time 11.4 sec (9.3-11.8) Prothrombin Time INR 1.08 (0.9-1.15) Activated Partial Thromboplast Time 31.9 SEC (24.5-34.5) Urine Color Light-orange (Yellow) Urine Clarity Turbid (Clear) Urine pH 6.5 (5.0-9.0) Urine Specific [place] 1.024 (1.001-1.035) Urine Protein Trace (Negative) Urine Ketones Trace (Negative) Urine Blood 3+ /uL (Negative) Urine Nitrite Negative (Negative) Urine Bilirubin Negative (Negative) Urine Urobilinogen 4 mg/dL (Negative) Urine Leukocyte Esterase 1+ /uL (Negative) Urine RBC 3594 /hpf (0 - 4) Urine Microscopic WBC 25 /HPF (0-5) Urine Squamous Epithelial Cells Few /hpf (<5) Urine Bacteria None seen /hpf (None Seen) Urine Mucus Few (None Seen) Urine Glucose Normal mg/dL (Normal) Chlamydia trachomatis (RASHAAD) Negative (Negative) Neisseria gonorrhoeae (RASHAAD) Negative (Negative) Test 09/12/24 18:35 Lipase 36 U/L (12-53) Hepatitis A IgM Antibody Negative Hepatitis B Surface Antigen Negative (Negative) Hepatitis B Core IgM Antibody Negative (Negative) Hepatitis C Antibody Negative (Negative) Other Laboratory Tests 09/18/24 04:45 Brief Hx & Hospital Course: History of Presenting illness 44-year-old female with past medical history of hypothyroidism, status post myomectomy and gastric bypass, presents with 3-day history of severe epigastric abdominal pain rated 10/10. Pain is constant, without known alleviating or exacerbating factors. Associated symptoms include vomiting and back pain, which have since resolved. She denies diarrhea, nausea, chills, fever, or sweats. She is currently menstruating. Notable for recent Moy catheter placement. Denies prior similar episodes. PMHx: hypothyroidism Pshx: myomectomy and gastric bypas Home Meds:Sumatriptan (Imitrex) 50 mg PO BID,Protonix, Synthroid Allergies: NKDA Social History: Non-smoker, Denies alcohol or illicit drug use. Lives independently Brief Hospital course Patient is a 44-year-old female with a past medical history of hypothyroidism who recently had myomectomy about 6 weeks ago without complications reported to the ED with epigastric pain 3 days preior to presenting to the ED. Epigastric pain radiated towards the back and a little bit to the right flank. Epigastric pain was associated with nausea and vomiting,but no diarrhea. She denies fever, chills, and sweating. In the ED, her initial vitals were grossly unremarkable, lab work was also unremarkable other than elevated liver enzymes. CT abdomen revealed enlarged lobulated multi-cystic cervix. Considerations include cervicitis, multiple nabothian cysts or malignancy. Cystic appearing left adnexal structure may represent ovarian cysts versus possible dilated fallopian tube. Gallbladder scan revealed Cholelithiasis and sludge in the gallbladder. There is no thickened gallbladder wall. Negative sonographic Andrade's sign. Right kidney measures 9 cm. There is no hydronephrosis. Given the transaminitis, we obtained MRCP and it was negative for choledocholithiasis. Her liver enzymes started trending downwards. Possible, patient might have passed the stone. Surgery has been following patient closely every day and recommended the liver enzymes continued to trend down we find intervention. As of this we can patient's liver enzymes continued to trend downward and surgery to come in for laparoscopic cholecystectomy. Surgery was done without a any complication. Patient was seen POD 1 and 2. She had no compliants. She did not want o be on any opioids for pain management. She however, tolerated it well and is about to ambulate with a front wheel walker. Patient is currently passing gas and tolerating full liquid diet. Overall, she is stable for discharge from surgical stand point. Her liver enzymes continued to trend downward. Plan is for her to follow up at discharge Clinic in a week and also follow up with surgery for postop assessment on the same day if possible. Review of Systems Constitutional: Denies fever no chills no feeling of malaise HEENT: Denies headache, ear pain, ear discharges, conjunctivitis, nasal discharge throat pain Cardiovascular: Denies chest pain, palpitation, orthopnea, PND, or pedal edema Respiratory: Denies shortness of breath, cough cough, sputum production, hemoptysis, GI: improving abdominal pain, nausea, vomiting, diarrhea, hematemesis, hematochezia, : Denies frequency, urgency, hematuria, Endocrine: Denies unintentional weight gain or weight loss, feeling of hot flashes, Wesley: Denies easy bruising, bleeding disorders, epistaxis Musculoskeletal: Denies joint pains, muscle aches Psych: No evidence of depression, henry, suicidal ideation Examination General Appearance: Alert, Oriented X3, Cooperative, No acute distress HEENT: Atraumatic, PERRLA, EOMI, Mucous membrane moist/pink Respiratory: Clear to auscultation, Normal air movement Cardiovascular: Regular rate, Normal S1, Normal S2, No murmurs, no chest wall tenderness Abdominal: NO distention, mild tenderness, bowel sounds present, incision site intact. No discharges noted Extremities: No clubbing, No cyanosis, No edema, Normal pulses, No tenderness/swelling Skin: No rashes, No breakdown, No significant lesion Neuro: Normal gait, Normal speech, Strength at 5/5 X4 ext, Normal tone, Sensation intact, Cranial nerves 3-12 NL, Reflexes 2+ Psych/Mental Status: Mental status NL, Mood NL Diagnoses Acute Epigastric pain rule out cholecystitis Acute systomatic Cholelithiasis; S/p cholecystectomy 09/16/2024 Recent history of myomectomy 6 weeks ago multople nabolthin cyst of cervix -benign findings Acute left hydrosalpinx Enlarged lobulated multi-cystic cervix. Considerations include cervicitis, multiple nabothian cysts or malignancy. Cystic appearing left adnexal structure may represent ovarian cysts versus possible dilated fallopian tube. Obesity grade 2, BMI 35.6 Hypothyroidism Acute transaminitis Leukocytosis, likely reactive 09/17/2024 Discharge plan Continue antibiotics for 3 more days into (Augmentin 875 b.i.d.) Follow up with the discharge Clinic in 7 days. Follow up with surgeon also on the same day possible concerns was next stool Follow up with primary care for continued to care. Patient can take a shower when sure that she does not rub too much on the incision site. Discharge plan discussed with Dr. Larson Consults/Reason for consult Surgery; Epigastric pain in the setting of cholelithiasis elevated liver enzymes, possible surgical intervention Reason for Consultation: Pelvic cyst Operations or Procedures Patient: LANETTE BAIG Acct: [id number] : 1980 Loc: [facility] Age/Sex: 44/F Room: [facility] / Bed: B Attending Phy: YUDY DE LA FUENTE RESIDENT Operative Report [id number] AC CHOLECYSTITIS LAP/OPEN CHOLECYSTECTOMY EBL 25 CC NO DRAIN NO COMPLICATIONS KIET DE LOS SANTOS MD September 16, 2024 10:48 DICTATED BY:KIET DE LOS SANTOS MD DICTATED DATE/TIME:09/16/24 1048 ELECTRONICALLY SIGNED BY:KIET DE LOS SANTOS MD 09/16/24 1048 ELECTRONICALLY CO-SIGNED BY: Condition at Discharge: Good Final Diagnosis/Problems List Acute Epigastric pain rule out cholecystitis Cholelithiasis; S/p cholecystectomy Recent history of myomectomy 6 weeks ago multople nabolthin cyst of cervix -benign findings Acute left hydrosalpinx Enlarged lobulated multi-cystic cervix. Considerations include cervicitis, multiple nabothian cysts or malignancy. Cystic appearing left adnexal structure may represent ovarian cysts versus possible dilated fallopian tube. Obesity grade 2, BMI 35.6 Hypothyroidism Acute transaminitis Leukocytosis, likely reactive 09/17/2024 Discharge Disposition: Home Discharge Instruct/Medications Diet: Regular Diet comment: full liquid diet and advance as can tolerate Activity: No Restrictions, As Tolerated Follow Up/Referral: 7 days at the discharge clinic and follow up with surgery Medications: Augmentin 875 mg bid Discharge Statement: "Patient was advised to return to the ER or call 911 if any headaches, dizziness, shortness of breath, chest pain, abdominal pain, bleeding, fevers, or worsening of medical condition. Patient was counseled about treatment plan, medications, possible side effects, patientverbalized understanding. All questions were answered to the best of my ability. This discharge took greater then 30 minutes in planning, reviewing documentation, counseling the patient, and discussing with other team members." ASSESSMENT ASSESSMENT Assessment Acute Epigastric pain rule out cholecystitis Cholelithiasis; S/p cholecystectomy Recent history of myomectomy 6 weeks ago multople nabolthin cyst of cervix -benign findings Acute left hydrosalpinx Enlarged lobulated multi-cystic cervix. Considerations include cervicitis, multiple nabothian cysts or malignancy. Cystic appearing left adnexal structure may represent ovarian cysts versus possible dilated fallopian tube. Obesity grade 2, BMI 35.6 Hypothyroidism Acute transaminitis Leukocytosis, likely reactive 09/17/2024 YUDY DE LA FUENTE RESIDENT September 18, 2024 17:33
[2024-09-18 21:00] VITALS: BP 105/63; PULSE 74; RESP 18; TEMP 97.9; O2SAT 97
[2024-09-19] MEDS ORDERED: AUG875T PO ×2 (19:08→19:17)
== END 2024-09-18 21:45 | disposition home or self-care (01) | DRG 263 ==
LOC: EEVIPCON 17:28 → ER 17:28 → EDUNIT# 21:01 → OVERFLOW 21:01 → WEST WING 09-13 14:48
PROVIDERS: ADMIT Student in an Organized Health Care Education/Training Program; ATTEND Emergency Medicine
PROC: 0FT44ZZ Resection of Gallbladder, Percutaneous Endoscopic Approach (ICD-10-PCS; principal; 2024-09-16 09:35)
DX: K80.00 Calculus of gallbladder with acute cholecystitis without obstruction (principal); N30.01 Acute cystitis with hematuria; D64.9 Anemia, unspecified; E03.9 Hypothyroidism, unspecified; I10 Essential (primary) hypertension; K21.9 Gastro-esophageal reflux disease without esophagitis; E66.9 Obesity, unspecified; R74.01 Elevation of levels of liver transaminase levels; R79.89 Other specified abnormal findings of blood chemistry; N70.11 Chronic salpingitis; N72 Inflammatory disease of cervix uteri; K82.8 Other specified diseases of gallbladder; N88.8 Other specified noninflammatory disorders of cervix uteri; Z98.84 Bariatric surgery status; Z83.3 Family history of diabetes mellitus; Z79.899 Other long term (current) drug therapy; Z68.35 Body mass index [BMI] 35.0-35.9, adult
CPT/HCPCS: 36415; 74177; 74181; 76705; 80048; 80053; 80074; 80076; 81001; 83690; 84702; 85025; 85610; 85730; 86850; 86900; 86901; 87086; 97110; 97116; 97163; 97530; G0378; J0131; J1100; J1885; J2250; J2405; J2470; J2704; J3490